=== PATIENT | male | born 1990 | race Two or more races ===

== ENCOUNTER 2019-01-19 17:01 | Inpatient (IN) | payer MEDICARE, OTHER ==
[2019-01-19] MEDS ORDERED: KETOROLAC 30 MG/ML 1 ML VIAL IVP STA (17:36)
[2019-01-19] MEDS ORDERED: SODIUM CHLORIDE 0.9% 1,000 ML IV ONE (17:36)
--- NOTE | 2019-01-19 17:52 | ED ---
General Adult HPI - General Chief complaint: Skin/Abscess/Foreign Body Stated complaint: foot pain Time Seen by Provider: 01/19/19 17:12 Source: patient Mode of arrival: wheelchair Limitations: no limitations - History of Present Illness Initial comments: 28-year-old male patient who is nonverbal presents with mother for evaluation of right foot pain. Parent states that she noticed redness and swelling to the foot yesterday. States that patient has an abnormal gait and walks on the ball of his foot. States that she noticed a wound between the third and fourth toes with significant redness and swelling yesterday. She denies fever or chills. Denies nausea or vomiting. Patient does seem quite uncomfortable whenever the foot is touched. She denies any history of similar symptoms or infection. States he does have history of epilepsy and takes medication for this. - Related Data Home Medications Medication Instructions Recorded Confirmed Mirtazapine [Remeron] 15 mg PO HS 01/19/19 01/19/19 levETIRAcetam [Keppra] 250 mg PO BID 01/19/19 01/19/19 Allergies Allergy/AdvReac Type Severity Reaction Status Date / Time No Known Allergies Allergy Verified 01/19/19 20:05 Review of Systems ROS Statement: Those systems with pertinent positive or pertinent negative responses have been documented in the HPI. ROS Other: All systems not noted in ROS Statement are negative. Past Medical History Past Medical History: Seizure Disorder History of Any Multi-Drug Resistant Organisms: None Reported Past Surgical History: No Surgical Hx Reported Past Psychological History: No Psychological Hx Reported Smoking Status: Current every day smoker Past Alcohol Use History: None Reported Past Drug Use History: None Reported General Exam Limitations: no limitations General appearance: alert, in no apparent distress, other (Is a well-developed, well-nourished adult male patient in no acute distress. Vital signs upon presentation are temperature 98.5F, pulse 121, respirations 18, blood pressure 151/100, pulse ox 99% on room air.) Eye exam: Present: normal appearance, PERRL, EOMI. Absent: scleral icterus, conjunctival injection, periorbital swelling ENT exam: Present: normal exam, normal oropharynx, mucous membranes moist Respiratory exam: Present: normal lung sounds bilaterally. Absent: respiratory distress, wheezes, rales, rhonchi, stridor Cardiovascular Exam: Present: normal rhythm, tachycardia, normal heart sounds. Absent: systolic murmur, diastolic murmur, rubs, gallop, clicks GI/Abdominal exam: Present: soft, normal bowel sounds. Absent: distended, tenderness, guarding, rebound, rigid Extremities exam: Present: full ROM, tenderness (Tenderness over the dorsum of the foot, over these third and fourth toes, over the ball of the foot.), normal capillary refill, other (There is erythema over the dorsal aspect and ball of the right foot with streaking up the medial calf. There is soft tissue swelling over the dorsal aspect of the right foot. There is an open wound to the webbing between the third and fourth toe, skin is moist and macerated. Pedal pulses 2+ and equal bilaterally.). Absent: pedal edema, joint swelling, calf tenderness Neurological exam: Present: alert, oriented X3, CN II-XII intact Psychiatric exam: Present: normal affect, normal mood Skin exam: Present: warm, dry, intact, normal color. Absent: rash Course Vital Signs 01/19/19 01/19/19 17:09 19:26 Temperature 98.5 F Pulse Rate 121 H 108 H Respiratory 18 18 Rate Blood Pressure 151/100 135/89 O2 Sat by Pulse 99 98 Oximetry Medical Decision Making - Medical Decision Making 28 year-old male patient presents to the emergency department today for evaluation of redness, swelling, and a wound to the right foot. Physical examination did reveal erythema and swelling over the dorsal aspect of the right foot, the ball of the foot, and extending up the medial calf. There is a wound to the webbing between the third and fourth digit on the right foot. Patient is tachycardic. Labs reviewed and did reveal elevated white blood cell count at 12.4, elevated lactic at 2.4. X-ray was obtained, no evidence for osteomyelitis or subcutaneous air. Did start IV antibiotics. He'll be admitted for further evaluation by infectious disease. - Lab Data Result diagrams: 01/19/19 17:55 01/19/19 17:55 Lab Results 01/19/19 01/19/19 01/19/19 Range/Units 17:55 17:55 17:55 WBC 12.4 H (3.8-10.6) k/uL RBC 5.03 (4.30-5.90) m/uL Hgb 16.3 (13.0-17.5) gm/dL Hct 48.2 (39.0-53.0) % MCV 95.9 (80.0-100.0) fL MCH 32.5 (25.0-35.0) pg MCHC 33.9 (31.0-37.0) g/dL RDW 12.0 (11.5-15.5) % Plt Count 281 (150-450) k/uL Neutrophils % 78 % Lymphocytes % 12 % Monocytes % 7 % Eosinophils % 2 % Basophils % 0 % Neutrophils # 9.7 H (1.3-7.7) k/uL Lymphocytes # 1.5 (1.0-4.8) k/uL Monocytes # 0.8 (0-1.0) k/uL Eosinophils # 0.2 (0-0.7) k/uL Basophils # 0.0 (0-0.2) k/uL Sodium 139 (137-145) mmol/L Potassium 4.0 (3.5-5.1) mmol/L Chloride 103 (98-107) mmol/L Carbon Dioxide 23 (22-30) mmol/L Anion Gap 13 mmol/L BUN 9 (9-20) mg/dL Creatinine 0.68 (0.66-1.25) mg/dL Est GFR (CKD-EPI)AfAm >90 (>60 ml/min/1.73 sqM) Est GFR (CKD-EPI)NonAf >90 (>60 ml/min/1.73 sqM) Glucose 100 H (74-99) mg/dL Plasma Lactic Acid Adrien 2.4 H* (0.7-2.0) mmol/L Calcium 9.7 (8.4-10.2) mg/dL Total Bilirubin 0.7 (0.2-1.3) mg/dL AST 30 (17-59) U/L ALT 46 (21-72) U/L Alkaline Phosphatase 84 (38-126) U/L Total Protein 8.2 (6.3-8.2) g/dL Albumin 4.9 (3.5-5.0) g/dL - Radiology Data Radiology results: report reviewed, image reviewed Disposition Clinical Impression: Cellulitis of right foot, Wound of right foot, Sepsis Disposition: ADMITTED IP TO THIS [facility] Condition: Serious Decision to Admit Reason: Admit from Decision Date: 01/19/19 Decision Time: :29
--- NOTE | 2019-01-19 18:30 | XR ---
EXAMINATION TYPE: XR foot complete RT DATE OF EXAM: 01/19/2019 CLINICAL HISTORY: Right foot pain and redness and swelling TECHNIQUE: Frontal, lateral, and oblique images of the right foot are obtained. COMPARISON: None FINDINGS: There is no acute fracture/dislocation evident in the right foot. The joint spaces in the right foot appear within normal limits. The overlying soft tissue demonstrates midfoot circumferent ial soft tissue swelling. IMPRESSION: There is no acute fracture or dislocation in the right foot. Diffuse midfoot soft tissue swelling without acute osseous abnormality. Consider cellulitis.
[2019-01-19 18:32] LABS: Basophils % (A) 0 %; Eosinophils # (A) 0.2 k/uL (0-0.7); Eosinophils % (A) 2 %; HCT 48.2 % (39.0-53.0); HGB 16.3 gm/dL (13.0-17.5); Lymphocytes # (A) 1.5 k/uL (1.0-4.8); Lymphocytes % (A) 12 %; MCH 32.5 pg (25.0-35.0); MCHC 33.9 g/dL (31.0-37.0); MCV 95.9 fL (80.0-100.0); Mean Platelet Volume 6.4; Monocytes # (A) 0.8 k/uL (0-1.0); Monocytes % (A) 7 %; Neutrophils # (A) 9.7 k/uL (1.3-7.7); Neutrophils % (A) 78 %; Platelet Count 281 k/uL (150-450); RBC 5.03 m/uL (4.30-5.90); WBC 12.4 k/uL (3.8-10.6)
[2019-01-19 18:40] LABS: ALT 46 U/L (21-72); AST 30 U/L (17-59); African American GFR (CKD) >90 (>60 ml/min/1.73 sqM); Albumin 4.9 g/dL (3.5-5.0); Alkaline Phosphatase 84 U/L (38-126); Anion Gap 13 mmol/L; Blood Urea Nitrogen 9 mg/dL (9-20); Calcium 9.7 mg/dL (8.4-10.2); Carbon Dioxide 23 mmol/L (22-30); Chloride 103 mmol/L (98-107); Glucose 100 mg/dL (74-99); Non-African American GFR(CKD) >90 (>60 ml/min/1.73 sqM); Sodium 139 mmol/L (137-145); Total Bilirubin 0.7 mg/dL (0.2-1.3); Total Protein 8.2 g/dL (6.3-8.2)
[2019-01-19] MEDS ORDERED: ONDANSETRON 4 MG/2 ML VIAL IVP PRN (19:25)
[2019-01-19] MEDS ORDERED: ACETAMINOPHEN TAB 325 MG TAB PO PRN (19:25)
[2019-01-19] MEDS ORDERED: KETOROLAC 30 MG/ML 1 ML VIAL IVP PRN (19:25)
[2019-01-19] MEDS ORDERED: NALOXONE 0.4 MG/ML 1 ML VIAL IV PRN (19:25)
[2019-01-19] MEDS: SODIUM CHLORIDE 0.9% 1,000 ML IV SCH (20:08)
[2019-01-19] MEDS: levETIRAcetam 250 MG TAB PO SCH (22:16)
[2019-01-19] MEDS: MIRTAZAPINE 15 MG TAB PO SCH (22:16)
[2019-01-20] MEDS: SODIUM CHLORIDE 0.9% 1,000 ML IV SCH ×2 (06:03→17:42)
[2019-01-20 08:47] LABS: Basophils % (A) 0 %; Eosinophils # (A) 0.3 k/uL (0-0.7); Eosinophils % (A) 4 %; HCT 44.3 % (39.0-53.0); HGB 14.8 gm/dL (13.0-17.5); Lymphocytes # (A) 1.4 k/uL (1.0-4.8); Lymphocytes % (A) 17 %; MCH 32.5 pg (25.0-35.0); MCHC 33.3 g/dL (31.0-37.0); MCV 97.6 fL (80.0-100.0); Mean Platelet Volume 6.2; Monocytes # (A) 0.5 k/uL (0-1.0); Monocytes % (A) 7 %; Neutrophils # (A) 5.6 k/uL (1.3-7.7); Neutrophils % (A) 69 %; Platelet Count 242 k/uL (150-450); RBC 4.53 m/uL (4.30-5.90); RDW 12.2 % (11.5-15.5)
[2019-01-20] MEDS: levETIRAcetam 250 MG TAB PO SCH ×2 (09:23→20:01)
[2019-01-20] MEDS ORDERED: DIPH,PERTUS(ACELL)TETVAC-LF 0.5 ML VIAL IM ONE (10:15)
--- NOTE | 2019-01-20 12:00 | P.HPIM ---
History of Present Illness H&P Date: 01/20/19 Chief Complaint: Right foot redness This is a 28-year-old male patient of Dr. Norton with past medical history of intellectual delay from , seizure disorder. Patient was apparently in a coma as a child for approximate 20 days and parents were told that he would never walk. Patient does live at home with his mother and father. He is able to ambulate but has to hang onto the galarza etc. He falls frequently. Patient has 1-2 day history of wound to the right plantar surface of his foot at the base of fourth toe. Mother believes it started as a blister which popped. This wound is now open and he has erythema and edema extending up to the foot to the base of that ankle. Patient also has complaints of headache and back pain which are generalized. There is also concern that patient has difficulty with swallowing and choking episodes after eating. Patient was brought into [facility] emergency center for evaluation. White count was 12.4, afebrile, creatinine 0.68, lactic acid initially 2.4 and status post 1 L of IV fluids. With repeat lactic acid 0.8. Albumin is 4.9. Wound culture was obtained and blood culture in progress. Foot x-ray shows no acute fracture or dislocation. Diffuse mid foot soft tissue swelling without acute osseous abnormality. Consider cellulitis. The patient was started on Kefzol admitted to the [facility] floor and consult requested with Dr. Baer. All information has been obtained from the patient's mother using a publicity writer as patient and family speak Fijian only. Review of Systems Constitutional: Denies chills, Denies fatigue, Denies fever, Denies lethargy, Denies malaise, Denies poor appetite, Denies weakness Eyes: denies blurred vision, denies pain Ears, nose, mouth and throat: Reports dysphagia Cardiovascular: Denies chest pain, Denies shortness of breath Respiratory: Denies cough, Denies cough with sputum, Denies dyspnea, Denies ex cessive sputum, Denies hemoptysis, Denies home oxygen, Denies respiratory infections Gastrointestinal: Denies abdominal pain, Denies diarrhea, Denies loss of appetite, Denies nausea, Denies vomiting Genitourinary: Denies dysuria, Denies urinary frequency, Denies urinary retention Musculoskeletal: Reports frequent falls, Reports gait dysfunction, Reports muscle weakness, Denies myalgias Integumentary: Reports color changes, Reports darkening of skin, Reports wounds, Denies pruritus, Denies rash Neurological: Denies change in mentation (MENTATION is at baseline.), Denies change in speech, Denies numbness, Denies seizures, Denies weakness Psychiatric: Denies anxiety, Denies depression Endocrine: Denies fatigue, Denies weight change Past Medical History Past Medical History: Seizure Disorder Additional Past Medical History / Comment(s): Intellectual delay History of Any Multi-Drug Resistant Organisms: None Reported Past Surgical History: No Surgical Hx Reported Past Psychological History: No Psychological Hx Reported Smoking Status: Never smoker Past Alcohol Use History: None Reported Additional Past Alcohol Use History / Comment(s): Patient is a lifelong nonsmoker, no marijuana use, no illicit drug use, no alcohol use. Patient lives at home with his mother and father as his primary caregivers. Past Drug Use History: None Reported - Past Family History Mother Additional Family Medical History / Comment(s): Mother is alive at age 61 with history of hypertension and prediabetes. Father Additional Family Medical History / Comment(s): Father is alive with no major medical problems. Patient has 5 brothers and 1 sister with no major medical problems. No children. Medications and Allergies Home Medications Medication Instructions Recorded Confirmed Type Mirtazapine [Remeron] 15 mg PO HS 01/19/19 01/19/19 History levETIRAcetam [Keppra] 250 mg PO BID 01/19/19 01/19/19 History Allergies Allergy/AdvReac Type Severity Reaction Status Date / Time No Known Allergies Allergy Verified 01/19/19 20:05 Physical Exam Vitals: Vital Signs Temp Pulse Pulse Resp BP BP Pulse Ox 01/20/19 05:00 97.3 F L 90 18 110/72 97 01/19/19 21:00 98 F 120 H 18 128/77 98 01/19/19 19:26 108 H 18 135/89 98 01/19/19 17:09 98.5 F 121 H 18 151/100 99 Intake and Output 01/19/19 01/20/19 01/20/19 22:59 06:59 14:59 Intake Total 300 Output Total 400 Balance 300 -400 Intake: Intake, IV Titration 300 Amount Sodium Chloride 0.9% 1, 300 000 ml @ 100 mls/hr IV . Q10H [facility] Rx#:[id number] Output: Urine 400 Other: Voiding Method Toilet Urinal Weight 56.699 kg Gen: This is a 28-year-old male. He is resting in bed and appears to be comfortable and in no acute distress. Patient initially smiles to staff. He interacts with his mother. HEENT: Head is atraumatic, normocephalic. Pupils equal, round. Sclerae is anicteric. Oral mucous membranes are moist. Dentition is in good order. NECK: Supple. No JVD. No lymphadenopathy. No thyromegaly. LUNGS: Clear to auscultation. No wheezes or rhonchi. No intercostal retractions. HEART: Regular rate and rhythm. No murmur. ABDOMEN: Soft. Bowel sounds are present. No masses. No tenderness. EXTREMITIES: There is a wound to the plantar surface of the right foot at the base of the fourth toe with minimal drainage, erythema to the foot with edema mo re so to the lateral area. Dorsalis pedis +2 bilaterally. NEUROLOGICAL: Patient is awake, alert. Results CBC & Chem 7: 01/20/19 08:01 01/19/19 17:55 Labs: Abnormal Lab Results - Last 24 Hours (Table) 01/19/19 01/19/19 01/19/19 Range/Units 17:55 17:55 17:55 WBC 12.4 H (3.8-10.6) k/uL Neutrophils # 9.7 H (1.3-7.7) k/uL Glucose 100 H (74-99) mg/dL Plasma Lactic Acid Adrien 2.4 H* (0.7-2.0) mmol/L Microbiology - Last 24 Hours (Table) 01/19/19 17:55 Gram Stain - Preliminary Foot - Right Wound Culture - Preliminary Thrombosis Risk Factor Assmnt - DVT/VTE Prophylaxis DVT/VTE Prophylaxis: Pharmacologic Prophylaxis ordered - Choose All That Apply Any of the Below Risk Factors Present?: Yes Each Factor Represents 1 point: Swollen legs (current) Other Risk Factors: No Other congenital or acquired thrombophilia - If yes, enter type in comment: No Thrombosis Risk Factor Assessment Total Risk Factor Score: 1 Thrombosis Risk Factor Assessment Level: Low Risk Assessment and Plan Plan: 1. Traumatic ulcer to the right foot with surrounding cellulitis. Consult with Dr. Baer. Patient is currently on Kefzol. Tetanus status will be updated. Wound culture and blood culture in progress. Foot x-ray shows no acute fracture. Local wound care to be addressed. 2. Intellectually delayed, stable. Patient is currently at his baseline mentation. 3. Dysphagia. Consult with speech therapy. Patient may require modified barium swallow. 4. Seizure disorder. Continue Keppra 250 mg twice daily. 5. Recurrent depression. Continue Remeron 15 mg at bedtime. 6. DVT prophylaxis. Lovenox subcu daily. 7. GI prophylaxis. Pepcid. Patient will be admitted to the hospital for a minimum of 2 night stay. Discharge plan: Return home. Patient may benefit from home care. Impression and plan of care have been directed as dictated by the signing physician. Jannet Conley nurse practitioner acting as scribe for signing physician.
--- NOTE | 2019-01-20 12:03 | P.CONS ---
History of Present Illness - Reason for Consult Consult date: 01/20/19 Cellulitis right foot wound - History of Present Illness This is a 28-year-old male patient of Dr. Norton with past medical history of intellectual delay from , seizure disorder. Patient was apparently in a coma as a child for approximate 20 days and parents were told that he would never walk. Patient does live at home with his mother and father. He is able to ambulate but has to hang onto the galarza etc. He falls frequently. Patient has 1-2 day history of wound to the right plantar surface of his foot at the base of fourth toe. Mother believes it started as a blister which popped. This wound is now open and he has erythema and edema extending up to the foot to the base of that ankle. Patient also has complaints of headache and back pain which are generalized. There is also concern that patient has difficulty with swallowing and choking episodes after eating. Patient was brought into [facility] emergency center for evaluation. White count was 12.4, afebrile, creatinine 0.68, lactic acid initially 2.4 and status post 1 L of IV fluids. With repeat lactic acid 0.8. Albumin is 4.9. Wound culture was obtained and blood culture in progress. Foot x-ray shows no acute fracture or dislocation. Diffuse mid foot soft tissue swelling without acute osseous abnormality. Consider cellulitis. The patient was started on Kefzol [facility]. All information has been obtained from the patient's mother using a cardroom worker as patient and family speak Amharic only. Review of Systems Constitutional: Denies chills, Denies fatigue, Denies fever, Denies lethargy, Denies malaise, Denies poor appetite, Denies weakness Eyes: denies blurred vision, denies pain Ears, nose, mouth and throat: Reports dysphagia Cardiovascular: Denies chest pain, Denies shortness of breath Respiratory: Denies cough, Denies cough with sputum, Denies dyspnea, Denies excessive sputum, Denies hemoptysis, Denies home oxygen, Denies respiratory infections Gastrointestinal: Denies abdominal pain, Denies diarrhea, Denies loss of appetite, Denies nausea, Denies vomiting Genitourinary: Denies dysuria, Denies urinary frequency, Denies urinary retention Musculoskeletal: Reports frequent falls, Reports gait dysfunction, Reports muscle weakness, Denies myalgias Integumentary: Reports color changes, Reports darkening of skin, Reports wounds, Denies pruritus, Denies rash Neurological: Denies change in mentation (MENTATION is at baseline.), Denies change in speech, Denies numbness, Denies seizures, Denies weakness Psychiatric: Denies anxiety, Denies depression Endocrine: Denies fatigue, Denies weight change Past Medical History Past Medical History: Seizure Disorder Additional Past Medical History / Comment(s): Intellectual delay History of Any Multi-Drug Resistant Organisms: None Reported Past Surgical History: No Surgical Hx Reported Past Psychological History: No Psychological Hx Reported Smoking Status: Never smoker Past Alcohol Use History: None Reported Additional Past Alcohol Use History / Comment(s): Patient is a lifelong nonsmoker, no marijuana use, no illicit drug use, no alcohol use. Patient lives at home with his mother and father as his primary caregivers. Past Drug Use History: None Reported - Past Family History Mother Additional Family Medical History / Comment(s): Mother is alive at age 61 with history of hypertension and prediabetes. Father Additional Family Medical History / Comment(s): Father is alive with no major medical problems. Patient has 5 brothers and 1 sister with no major medical problems. No children. Medications and Allergies Home Medications Medication Instructions Recorded Confirmed Type Mirtazapine [Remeron] 15 mg PO HS 01/19/19 01/19/19 History levETIRAcetam [Keppra] 250 mg PO BID 01/19/19 01/19/19 History Allergies Allergy/AdvReac Type Severity Reaction Status Date / Time No Known Allergies Allergy Verified 01/19/19 20:05 Physical Exam Vitals: Vital Signs Temp Pulse Pulse Resp BP BP Pulse Ox 01/20/19 05:00 97.3 F L 90 18 110/72 97 01/19/19 21:00 98 F 120 H 18 128/77 98 01/19/19 19:26 108 H 18 135/89 98 01/19/19 17:09 98.5 F 121 H 18 151/100 99 Intake and Output 01/19/19 01/20/19 01/20/19 22:59 06:59 14:59 Intake Total 300 Output Total 400 Balance 300 -400 Intake: Intake, IV Titration 300 Amount Sodium Chloride 0.9% 1, 300 000 ml @ 100 mls/hr IV . Q10H [facility] Rx#:[id number] Output: Urine 400 Other: Voiding Method Toilet Toilet Urinal Urinal Weight 56.699 kg Gen: This is a 28-year-old male. He is resting in bed and appears to be comfortable and in no acute distress. Patient initially smiles to staff. He interacts with his mother. HEENT: Head is atraumatic, normocephalic. Pupils equal, round. Sclerae is anicteric. Oral mucous membranes are moist. Dentition is in good order. NECK: Supple. No JVD. No lymphadenopathy. No thyromegaly. LUNGS: Clear to auscultation. No wheezes or rhonchi. No intercostal retractions. HEART: Regular rate and rhythm. No murmur. ABDOMEN: Soft. Bowel sounds are present. No masses. No tenderness. EXTREMITIES: There is a wound to the plantar surface of the right foot at the base of the fourth toe with minimal drainage, erythema to the foot with edema more so to the lateral area. Dorsalis pedis +2 bilaterally. NEUROLOGICAL: Patient is awake, alert. Results Results: Laboratory Results WBC 8.0 k/uL (3.8-10.6) 01/20/19 08:01 RBC 4.53 m/uL (4.30-5.90) 01/20/19 08:01 Hgb 14.8 gm/dL (13.0-17.5) 01/20/19 08:01 Hct 44.3 % (39.0-53.0) 01/20/19 08:01 MCV 97.6 fL (80.0-100.0) 01/20/19 08:01 MCH 32.5 pg (25.0-35.0) 01/20/19 08:01 MCHC 33.3 g/dL (31.0-37.0) 01/20/19 08:01 RDW 12.2 % (11.5-15.5) 01/20/19 08:01 Plt Count 242 k/uL (150-450) 01/20/19 08:01 Neutrophils % 69 % 01/20/19 08:01 Lymphocytes % 17 % 01/20/19 08:01 Monocytes % 7 % 01/20/19 08:01 Eosinophils % 4 % 01/20/19 08:01 Basophils % 0 % 01/20/19 08:01 Neutrophils # 5.6 k/uL (1.3-7.7) 01/20/19 08:01 Lymphocytes # 1.4 k/uL (1.0-4.8) 01/20/19 08:01 Monocytes # 0.5 k/uL (0-1.0) 01/20/19 08:01 Eosinophils # 0.3 k/uL (0-0.7) 01/20/19 08:01 Basophils # 0.0 k/uL (0-0.2) 01/20/19 08:01 Sodium 139 mmol/L (137-145) 01/19/19 17:55 Potassium 4.0 mmol/L (3.5-5.1) 01/19/19 17:55 Chloride 103 mmol/L (98-107) 01/19/19 17:55 Carbon Dioxide 23 mmol/L (22-30) 01/19/19 17:55 Anion Gap 13 mmol/L 01/19/19 17:55 BUN 9 mg/dL (9-20) 01/19/19 17:55 Creatinine 0.68 mg/dL (0.66-1.25) 01/19/19 17:55 Est GFR (CKD-EPI)AfAm >90 (>60 ml/min/1.73 sqM) 01/19/19 17:55 Est GFR (CKD-EPI)NonAf >90 (>60 ml/min/1.73 sqM) 01/19/19 17:55 Glucose 100 mg/dL (74-99) H 01/19/19 17:55 Lactic Ac Sepsis Rflx Y 01/19/19 18:46 Plasma Lactic Acid Adrien 0.8 mmol/L (0.7-2.0) 01/19/19 21:52 Calcium 9.7 mg/dL (8.4-10.2) 01/19/19 17:55 Total Bilirubin 0.7 mg/dL (0.2-1.3) 01/19/19 17:55 AST 30 U/L (17-59) 01/19/19 17:55 ALT 46 U/L (21-72) 01/19/19 17:55 Alkaline Phosphatase 84 U/L (38-126) 01/19/19 17:55 Total Protein 8.2 g/dL (6.3-8.2) 01/19/19 17:55 Albumin 4.9 g/dL (3.5-5.0) 01/19/19 17:55 CBC & Chem 7: 01/20/19 08:01 01/19/19 17:55 Labs: Abnormal Lab Results - Last 24 Hours (Table) 01/19/19 01/19/19 01/19/19 Range/Units 17:55 17:55 17:55 WBC 12.4 H (3.8-10.6) k/uL Neutrophils # 9.7 H (1.3-7.7) k/uL Glucose 100 H (74-99) mg/dL Plasma Lactic Acid Adrien 2.4 H* (0.7-2.0) mmol/L Microbiology - Last 24 Hours (Table) 01/19/19 17:55 Gram Stain - Preliminary Foot - Right Wound Culture - Preliminary Assessment and Plan Plan: This is a 28-year-old male presented to the hospital with traumatic ulcer to the right foot with surrounding cellulitis in a patient with underlying history of intellectual delay and seizure disorder. Patient also presents with concerns for dysphagia for which speech therapy has been requested. Patient is currently on Kefzol. Tetanus status will be updated. Wound culture and blood culture in progress. Foot x-ray shows no acute fracture. Local wound care to be addressed. Continue supportive care. Further recommendations as patient progresses. The above dictated assessment and findings were discussed with Dr. Baer. The impression and plan of care have been directed as dictated. Jannet Conley nurse practitioner acting as scribe for Dr. Baer.
[2019-01-20] MEDS: MIRTAZAPINE 15 MG TAB PO SCH (20:01)
--- NOTE | 2019-01-20 20:40 | P.CON ---
Consult Note - . Consult date: 01/20/19 Assessment/Plan:: This is a 28-year-old male patient of Dr. Norton with past medical history of intellectual delay from , seizure disorder. Patient was apparently in a coma as a child for approximate 20 days and parents were told that he would never walk. Patient does live at home with his mother and father. He is able to ambulate but has to hang onto the galarza etc. He falls frequently. Patient has 1-2 day history of wound to the right plantar surface of his foot at the base of fourth toe. Mother believes it started as a blister which popped. This wound is now open and he has erythema and edema extending up to the foot to the base of that ankle. Patient also has complaints of headache and back pain which are generalized. There is also concern that patient has difficulty with swallowing and choking episodes after eating. Patient was brought into [facility] emergency center for evaluation. White count was 12.4, afebrile, creatinine 0.68, lactic acid initially 2.4 and status post 1 L of IV fluids. With repeat lactic acid 0.8. Albumin is 4.9. Wound culture was obtained and blood culture in progress. Foot x-ray shows no acute fracture or dislocation. Diffuse mid foot soft tissue swe lling without acute osseous abnormality. Consider cellulitis. The patient was started on Kefzol admitted to the [facility] floor. All information has been obtained from the patient's mother using a information developer as patient and family speak Lithuanian only. Please see consult note was dictated by nurse practitioner Mrs. Jannet Conley. The patient's niece is present and is able to interpret from the mother in the aunt about the patient's status. No distinct trauma has occurred but he does walk in the foot with his an antalgic gait. He presents to hospital with the open wound with drainage and significant redness that has started on the foot that ascended to at least the ankle which was concerning. He was brought to the hospital, start antibiotic therapy and some local wound care and elevation. He is now having improvement. The patient himself does not relate much with the family relates that he does not seem to be in pain. He's had no chills. He has had no other significant new symptoms that they are aware of. Plan excision reviewed, bone scan is requested to evaluate the possibility of underlying osteomyelitis to this area. Local wound care with the medihoney product is requested to be changed daily for now. Elevation limb while he is at rest. He is responding well to intravenous Ancef and that will continue for now and cultures were further direct the course of antibiotic therapy when he becomes ready for discharge to home. He had leukocytosis at admission at 29 starting to improve with the current therapy. I agree with evaluation, assessment and plan is to see by nurse practitioner Mrs. Jannet Conley.
[2019-01-20 21:23] VITALS: RESP 16
[2019-01-21] MEDS: SODIUM CHLORIDE 0.9% 1,000 ML IV SCH (05:40)
[2019-01-21] MEDS: levETIRAcetam 250 MG TAB PO SCH (08:38)
[2019-01-21 12:10] VITALS: BP 136/84; PULSE 102; TEMP 98
--- NOTE | 2019-01-21 14:10 | NM ---
EXAMINATION TYPE: NM bone 3 phase DATE OF EXAM: 01/21/2019 COMPARISON: X-rays of the right foot dated 01/19/2019 HISTORY: Right foot osteomyelitis. Triple phase bone scintigraphy was performed following the injection of 24.3 mCi Tc 99m MDP. Immedia te images and 6 hours post injection images acquired. FINDINGS: There is abnormal flow and blood pool to the right lower extremity there is asymmetric to the left. D elayed images do demonstrate diffuse asymmetric uptake of the midfoot and hindfoot on the right altho ugh uptake is also seen on the left, likely arthropathy. IMPRESSION: Although the three-phase bone scan is positive with uptake on all 3 phases in the right midfoot there is also extension into the right hindfoot globally. Diffuse osteomyelitis is possible however this i s a large area for osteomyelitis and confirmatory MRI could be considered.
--- NOTE | 2019-01-21 15:13 | P.PN ---
Subjective Progress Note Date: 01/21/19 This is a 28-year-old male patient of Dr. Norton with past medical history of intellectual delay from , seizure disorder. Patient was apparently in a coma as a child for approximate 20 days and parents were told that he would never walk. Patient does live at home with his mother and father. He is able to ambulate but has to hang onto the galarza etc. He falls frequently. Patient has 1-2 day history of wound to the right plantar surface of his foot at the base of fourth toe. Mother believes it started as a blister which popped. This wound is now open and he has erythema and edema extending up to the foot to the base of that ankle. Patient also has complaints of headache and back pain which are generalized. There is also concern that patient has difficulty with swallowing and choking episodes after eating. Patient was brought into [facility] emergency center for evaluation. White count was 12.4, afebrile, creatinine 0.68, lactic acid initially 2.4 and status post 1 L of IV fluids. With repeat lactic acid 0.8. Albumin is 4.9. Wound culture was obtained and blood culture in progress. Foot x-ray shows no acute fracture or dislocation. Diffuse mid foot soft tissue swelling without acute osseous abnormality. Consider cellulitis. The patient was started on Kefzol admitted to the [facility] floor and consult requested with Dr. Baer. All information has been obtained from the patient's mother using a tax adjuster as patient and family speak Albanian only. 01/21: Patient has been seen by Dr. Baer and he has ordered a bone scan to rule out osteomyelitis. Local wound care as the form of medihoney daily and elevation. Patient is continued on Ancef. The patient has less erythema to the right foot. Repeat lab work reveals a normal CBC, white count came down to 8.0. Wound culture is presumptive staph aureus. Blood culture no growth at 24 hours. Bone scan is showing positive with uptake in the right mid foot and extension into the right hind foot globally. Diffuse osteomyelitis is possible however it is a large area for osteomyelitis and confirmatory MRI would be considered. Review of Systems Constitutional: Denies chills, Denies fatigue, Denies fever, Denies lethargy, Denies malaise, Denies poor appetite, Denies weakness Ears, nose, mouth and throat: Reports dysphagia Cardiovascular: Denies chest pain, Denies shortness of breath Respiratory: Denies cough, Denies cough with sputum, Denies dyspnea, Denies ex cessive sputum, Denies hemoptysis, Denies home oxygen, Denies respiratory infections Gastrointestinal: Denies abdominal pain, Denies diarrhea, Denies loss of appetite, Denies nausea, Denies vomiting Genitourinary: Denies dysuria, Denies urinary frequency, Denies urinary retention Musculoskeletal: Reports frequent falls, Reports gait dysfunction, Reports muscle weakness, Denies myalgias Integumentary: Reports color changes, Reports darkening of skin, Reports wounds, Denies pruritus, Denies rash Neurological: Denies change in mentation (MENTATION is at baseline.), Denies change in speech, Denies numbness, Denies seizures, Denies weakness Psychiatric: Denies anxiety, Denies depression Endocrine: Denies fatigue, Denies weight change Objective - Vital Signs Vital signs: Vital Signs Temp 97.8 F 01/21/19 05:00 Pulse 87 01/21/19 05:00 Resp 16 01/21/19 05:00 BP 123/81 01/21/19 05:00 Pulse Ox 97 01/21/19 05:00 Intake & Output 01/20/19 01/21/19 01/21/19 18:59 06:59 18:59 Intake Total 1000 450 Output Total 620 Balance 380 450 Intake: Intake, IV Titration 1000 450 Amount Sodium Chloride 0.9% 1, 800 350 000 ml @ 100 mls/hr IV . Q10H RAJ Rx#:[id number] ceFAZolin 1,000 mg In 200 100 Sodium Chloride 0.9% 50 ml @ 100 mls/hr IVPB Q6HR RAJ Rx#:[id number] Output: Urine 620 Other: Voiding Method Urinal Urinal # Voids 700 - Exam Gen: This is a 28-year-old male. He is resting in bed and appears to be comfortable and in no acute distress. Patient initially smiles to staff. He interacts with his mother. HEENT: Head is atraumatic, normocephalic. Pupils equal, round. Sclerae is anicteric. Oral mucous membranes are moist. Dentition is in good order. NECK: Supple. No JVD. No lymphadenopathy. No thyromegaly. LUNGS: Clear to auscultation. No wheezes or rhonchi. No intercostal retractions. HEART: Regular rate and rhythm. No murmur. ABDOMEN: Soft. Bowel sounds are present. No masses. No tenderness. EXTREMITIES: There is a wound to the plantar surface of the right foot at the base of the fourth toe with minimal drainage, erythema to the foot with edema is decreased from yesterday. Dorsalis pedis +2 bilaterally. NEUROLOGICAL: Patient is awake, alert. - Labs CBC & Chem 7: 01/20/19 08:01 01/19/19 17:55 Labs: Microbiology - Last 24 Hours (Table) 01/19/19 17:55 Blood Culture - Preliminary Blood No Growth after 24 hours 01/19/19 17:55 Gram Stain - Preliminary Foot - Right Wound Culture - Preliminary Presumptive Staph aureus Assessment and Plan Plan: 1. Traumatic ulcer to the right foot with surrounding cellulitis. Consult with Dr. Baer. Patient is currently on Kefzol. Tetanus status will be updated. Wound culture and blood culture in progress. Foot x-ray shows no acute fracture. Local wound care with [facility]. Bone scan as above. 2. Intellectually delayed, stable. Patient is currently at his baseline mentation. 3. Dysphagia. Consult with speech therapy. Patient may require modified barium swallow. 4. Seizure disorder. Continue Keppra 250 mg twice daily. 5. Recurrent depression. Continue Remeron 15 mg at bedtime. 6. DVT prophylaxis. Lovenox subcu daily. 7. GI prophylaxis. Pepcid. Discharge plan: Return home. Patient may benefit from home care. Impression and plan of care have been directed as dictated by the signing physician. Jannet Conley nurse practitioner acting as scribe for signing physician.
--- NOTE | 2019-01-21 16:05 | P.DS ---
Providers Date of admission: 01/21/19 14:35 Expected date of discharge: 01/21/19 Attending physician: Poli Pereyra Consults: 01/19/19 19:26 Consult Physician Routine Consulting Provider: Poli Baer Consult Reason/Comments: Cellulitis; Right foot wound Do you want consulting provider notified?: Yes Primary care physician: [facility] Course: This is a 28-year-old male patient of Dr. Norton with past medical history of intellectual delay from , seizure disorder. Patient was apparently in a coma as a child for approximate 20 days and parents were told that he would never walk. Patient does live at home with his mother and father. He is able to ambulate but has to hang onto the galarza etc. He falls frequently. Patient has 1-2 day history of wound to the right plantar surface of his foot at the base of fourth toe. Mother believes it started as a blister which popped. This wound is now open and he has erythema and edema extending up to the foot to the base of that ankle. Patient also has complaints of headache and back pain which are generalized. There is also concern that patient has difficulty with swallowing and choking episodes after eating. Patient was brought into [facility] emergency center for evaluation. White count was 12.4, afebrile, creatinine 0.68, lactic acid initially 2.4 and status post 1 L of IV fluids. With repeat lactic acid 0.8. Albumin is 4.9. Wound culture was obtained and blood culture in progress. Foot x-ray shows no acute fracture or dislocation. Diffuse mid foot soft tissue swelling without acute osseous abnormality. Consider cellulitis. The patient was started on Kefzol admitted to the [facility] floor and consult requested with Dr. Baer. All information has been obtained from the patient's mother using a business operations manager as patient and family speak Occitan only. 01/21: Patient has been seen by Dr. Baer and he has ordered a bone scan to rule out osteomyelitis. Local wound care as the form of medihoney daily and elevation. Patient is continued on Ancef. The patient has less erythema to the right foot. Repeat lab work reveals a normal CBC, white count came down to 8.0. Wound culture is presumptive staph aureus. Blood culture no growth at 24 hours. Bone scan is showing positive with uptake in the right mid foot and extension into the right hind foot globally. Diffuse osteomyelitis is possible however it is a large area for osteomyelitis and confirmatory MRI would be considered. This was not the area that was concerning for possible osteomyelitis and thus has been ruled out in the fourth toe. Discussed case with Dr. Baer and he is cleared the patient for discharge. Antibiotics have been sent to his pharmacy. We will ask for case management to set up home care to assist with wound care for short period of time. operations support manager is gone and we will leave message to follow-up tomorrow. Patient will be discharged home today in stable condition. Discharge diagnoses: 1. Traumatic ulcer to the right foot with surrounding cellulitis. 2. Intellectually delayed, stable. 3. Dysphagia. 4. Seizure disorder. 5. Recurrent depression. Discharge plan: Return home. Patient will benefit from home care. Impression and plan of care have been directed as dictated by the signing physician. Jannet Conley nurse practitioner acting as scribe for signing physician. Patient Condition at Discharge: Serious Plan - Discharge Summary Discharge Rx Participant: No New Discharge Prescriptions: New Cephalexin [Keflex] 500 mg PO Q8HR #28 cap Continue levETIRAcetam [Keppra] 250 mg PO BID Mirtazapine [Remeron] 15 mg PO HS Discharge Medication List Mirtazapine [Remeron] 15 mg PO HS 01/19/19 [History] levETIRAcetam [Keppra] 250 mg PO BID 01/19/19 [History] Cephalexin [Keflex] 500 mg PO Q8HR #28 cap 01/21/19 [Rx] Follow up Appointment(s)/Referral(s): Lionel Norton DO [Primary Care Provider] - 1 Week Discharge Disposition: HOME WITH HOME HEALTH SERVICES
== END 2019-01-21 17:55 | disposition home health service (06) | DRG 603 ==
LOC: EC 17:01 → 3NMEDONC 19:12 → MERGE 01-21 14:35 → OBSVTOIN 01-21 14:35
PROVIDERS: ADMIT Internal Medicine Geriatric Medicine; ATTEND Internal Medicine Geriatric Medicine
DX: L03.115 Cellulitis of right lower limb (principal); F33.9 Major depressive disorder, recurrent, unspecified; L97.519 Non-pressure chronic ulcer of other part of right foot with unspecified severity; R13.10 Dysphagia, unspecified; F17.200 Nicotine dependence, unspecified, uncomplicated; G40.909 Epilepsy, unspecified, not intractable, without status epilepticus; R29.6 Repeated falls; M54.9 Dorsalgia, unspecified; R51 Headache; R26.9 Unspecified abnormalities of gait and mobility; F81.9 Developmental disorder of scholastic skills, unspecified; Z79.899 Other long term (current) drug therapy; Z82.49 Family history of ischemic heart disease and other diseases of the circulatory system
CPT/HCPCS: 36415; 78315; 80053; 83605; 85025; 87040; 87070; 87077; 87186; 87205; 90715; 96361; 96374; 99284

== ENCOUNTER 2023-01-27 02:18 | Inpatient (IN) | payer MEDICARE, OTHER ==
[2023-01-27 03:02] LABS: Glucose,Whole Blood 132 mg/dL (70-110)
[2023-01-27 03:53] LABS: Basophils % (A) 0 %; Eosinophils # (A) 0.1 k/uL (0-0.7); Eosinophils % (A) 0 %; HCT 46.2 % (39.0-53.0); Lymphocytes # (A) 1.2 k/uL (1.0-4.8); Lymphocytes % (A) 8 %; MCH 32.7 pg (25.0-35.0); MCHC 34.7 g/dL (31.0-37.0); MCV 94.2 fL (80.0-100.0); Mean Platelet Volume 6.8; Monocytes # (A) 0.8 k/uL (0-1.0); Monocytes % (A) 6 %; Neutrophils % (A) 85 %; Platelet Count 372 k/uL (150-450); RBC 4.91 m/uL (4.30-5.90); WBC 14.2 k/uL (3.8-10.6)
[2023-01-27 04:11] LABS: ALT 48 U/L (4-49); AST 36 U/L (17-59); African American GFR (CKD) >90 (>60 ml/min/1.73 sqM); Albumin 5.1 g/dL (3.5-5.0); Alcohol <10 mg/dL; Alkaline Phosphatase 96 U/L (38-126); Anion Gap 16 mmol/L; Blood Urea Nitrogen 19 mg/dL (9-20); Calcium 10.3 mg/dL (8.4-10.2); Carbon Dioxide 22 mmol/L (22-30); Chloride 102 mmol/L (98-107); Glucose 80 mg/dL (74-99); Non-African American GFR(CKD) >90 (>60 ml/min/1.73 sqM); Potassium 3.8 mmol/L (3.5-5.1); Sodium 140 mmol/L (137-145); Total Bilirubin 0.5 mg/dL (0.2-1.3); Total Protein 8.5 g/dL (6.3-8.2)
[2023-01-27 04:31] LABS: Partial Thromboplastin Time 23.6 sec (22.0-30.0); Prothrombin Time 10.6 sec (10.0-12.5)
[2023-01-27 07:05] LABS: Appearance,Urine Clear (Clear); Bilirubin,Urine Negative (Negative); Blood,Urine Negative (Negative); Color,Urine Yellow; Glucose,Urine (UA) Negative (Negative); Ketones,Urine 3+ (Negative); Leukocyte Esterase,Urine Negative (Negative); Nitrite,Urine Negative (Negative); Protein,Urine Trace (Negative); Specific Gravity,Urine 1.025 (1.001-1.035); Urobilinogen,Urine <2.0 mg/dL (<2.0)
[2023-01-27 07:20] LABS: Amphetamine Screen,Urine Not Detected (NotDetected); Barbiturate Screen,Urine Not Detected (NotDetected); Benzodiazepines Screen,Urine Not Detected (NotDetected); Cocaine Screen,Urine Not Detected (NotDetected); Methadone Screen, Urine Not Detected (NotDetected); Opiate Screen,Urine Not Detected (NotDetected); Oxycodone Screen, Urine Not Detected (NotDetected); Phencyclidine Screen,Urine Not Detected (NotDetected); Tricyclic Antidepressant,Urine Not Detected (NotDetected); Urn Cannabinoid Scrn Not Detected (NotDetected)
--- NOTE | 2023-01-27 07:48 | XR ---
EXAM: XR Chest, 1 View CLINICAL HISTORY: ITS.REASON XR Reason: altered mental status TECHNIQUE: Frontal view of the chest. COMPARISON: 08/02/2013 FINDINGS: Lungs: Unremarkable. No consolidation. Pleural space: Unremarkable. No pneumothorax. Heart: Unremarkable. No cardiomegaly. Mediastinum: Unremarkable. Normal mediastinal contour. Bones/joints: Unremarkable. No acute fracture. IMPRESSION: Normal chest x-ray.
--- NOTE | 2023-01-27 08:12 | ED ---
Altered Mental Status HPI <Andrew Ching - Last Filed: 01/27/23 12:23> - General Source: patient Mode of arrival: wheelchair Limitations: no limitations - History of Present Illness MD Complaint: altered mental status Onset/Timin -: days(s) Severity: moderate Consistency of Symptoms: getting worse Associated Symptoms: denies other symptoms <Rodrigo Beltran - Last Filed: 02/05/23 06:54> - General Chief Complaint: Altered Mental Status Stated Complaint: mental health Time Seen by Provider: 01/27/23 02:41 - History of Present Illness Initial Comments: 's patient is a 32-year-old man with history of some developmental disability, attributed to cerebral palsy. The patient arrives with family who states that he has not been his usual self going back proximal 3 days. They note that he is at eating or drinking well. He has been holding his groin and genitals. The patient also now seems to be responding to internal stimuli. They state he will look as if he is seeing something that is not there. They have not noted fever or chills. They have not noted cough or respiratory problem. They state that he did have some episodes of nausea and vomiting. There was no hematemesis. He has not passed any bloody or tarry stools. (Rodrigo Beltran) - Related Data Previous Rx's Medication Instructions Recorded Paliperidone [Invega] 3 mg PO DAILY #30 tab 01/29/23 levETIRAcetam [Keppra] 500 mg PO BID #60 tab 01/29/23 traZODone HCL [Desyrel] 50 mg PO HS #30 tab 01/29/23 Allergies Allergy/AdvReac Type Severity Reaction Status Date / Time No Known Allergies Allergy Verified 01/27/23 13:57 Review of Systems ROS Other: All systems not noted in ROS Statement are negative. <Andrew Ching - Last Filed: 01/27/23 12:23> ROS Other: All systems not noted in ROS Statement are negative. Constitutional: Denies: fever, weakness Respiratory: Denies: cough, dyspnea Cardiovascular: Denies: chest pain, edema, syncope Gastrointestinal: Reports: vomiting, constipation. Denies: diarrhea, melena, hematochezia Genitourinary: Denies: dysuria, hematuria Musculoskeletal: Denies: back pain Skin: Denies: rash Neurological: Denies: headache, weakness, numbness <Rodrigo Beltran - Last Filed: 02/05/23 06:54> ROS Statement: Those systems with pertinent positive or pertinent negative responses have been documented in the HPI. Past Medical History Past Medical History: Seizure Disorder Additional Past Medical History / Comment(s): Intellectual delay History of Any Multi-Drug Resistant Organisms: None Reported Past Surgical History: No Surgical Hx Reported Past Psychological History: No Psychological Hx Reported Smoking Status: Never smoker Past Alcohol Use History: None Reported Past Drug Use History: None Reported - Past Family History Mother Additional Family Medical History / Comment(s): Mother is alive at age 61 with h istory of hypertension and prediabetes. Father Additional Family Medical History / Comment(s): Father is alive with no major medical problems. Patient has 5 brothers and 1 sister with no major medical problems. No children. <Rodrigo Beltran - Last Filed: 02/05/23 06:54> General Exam Limitations: no limitations General appearance: alert, in no apparent distress Head exam: Present: atraumatic, normocephalic Eye exam: Present: normal appearance. Absent: scleral icterus, conjunctival injection ENT exam: Present: normal oropharynx Neck exam: Present: normal inspection Respiratory exam: Present: normal lung sounds bilaterally. Absent: respiratory distress, wheezes, rales, rhonchi, stridor Cardiovascular Exam: Present: normal rhythm, tachycardia, normal heart sounds. Absent: systolic murmur, diastolic murmur, rubs, gallop GI/Abdominal exam: Present: soft. Absent: distended, tenderness, guarding, rebound, rigid, mass, pulsatile mass Extremities exam: Present: normal inspection, normal capillary refill. Absent: pedal edema, calf tenderness Back exam: Present: normal inspection. Absent: CVA tenderness (R), CVA tenderness (L) Neurological exam: Present: alert Psychiatric exam: Present: anxious, manic. Absent: homicidal ideation, suicidal ideation Skin exam: Present: warm, dry, intact, normal color. Absent: rash <Rodrigo Beltran - Last Filed: 02/05/23 06:54> Course Vital Signs 01/27/23 01/27/23 01/27/23 02:20 04:54 09:10 Temperature 98.7 F Pulse Rate 155 H 115 H 103 H Respiratory 22 18 18 Rate Blood Pressure 158/89 142/105 155/103 O2 Sat by Pulse 98 95 98 Oximetry 01/27/23 01/27/23 01/27/23 09:47 14:03 19:45 Temperature 98.4 F Pulse Rate 103 H 116 H 114 H Respiratory 18 16 Rate Blood Pressure 114/81 134/106 144/105 O2 Sat by Pulse 97 97 Oximetry 01/27/23 01/28/23 01/28/23 21:52 03:34 07:26 Temperature 98.2 F Pulse Rate 97 80 Respiratory 16 20 Rate Blood Pressure 138/100 137/97 158/85 O2 Sat by Pulse 95 98 Oximetry 01/28/23 01/28/23 01/28/23 09:53 19:47 20:00 Temperature Pulse Rate 100 101 H 101 H Respiratory 20 18 Rate Blood Pressure 158/85 158/85 146/93 O2 Sat by Pulse 98 99 Oximetry 01/28/23 20:30 Temperature Pulse Rate 106 H Respiratory 18 Rate Blood Pressure 133/85 O2 Sat by Pulse 99 Oximetry Medical Decision Making - Lab Data Result diagrams: 01/27/23 03:42 01/27/23 03:42 <Andrew Ching - Last Filed: 01/27/23 12:23> - Lab Data Result diagrams: 01/28/23 06:42 01/28/23 06:42 - EKG Data -: EKG Interpreted by [facility] EKG shows normal: sinus rhythm, axis (Normal), intervals (Normal) Rate: tachycardia (149) Interpretation: nonspecific ST-T wave changes <Rodrigo Beltran - Last Filed: 02/05/23 06:54> - Medical Decision Making Patient's care was signed out awaiting brain CT and CT abdomen. Patient's workup revealed a leukocytosis without other acute laboratory testing abnormality. His head CT was put quality but did not show definitive intracranial hemorrhage or mass effect. The patient continues to be off from his baseline. He will be admitted with consultation to both neurology and psychiatry. Case discussed with [facility] group. (Andrew Ching) Was pt. sent in by a medical professional or institution (, PA, CHEMICAL SALES REPRESENTATIVE, urgent care, hospital, or custodial...) When possible be specific @ -[No] Did you speak to anyone other than the patient for history (EMS, parent, family, police, friend...)? What history was obtained from this source @ -[Patient's family gives history Did you review nursing and triage notes (agree or disagree)? Why? @ -[I reviewed and agree with nursing and triage notes] Were old charts reviewed (outside hosp., previous admission, EMS record, old EKG, old radiological studies, urgent care reports/EKG's, custodial records)? Report findings @ -[No old charts were reviewed] Differential Diagnosis (chest pain, altered mental status, abdominal pain women, abdominal pain men, vaginal bleeding, weakness, fever, dyspnea, syncope, headache, dizziness, GI bleed, back pain, seizure, CVA, palpatations, mental health, musculoskeletal)? @ -[Differential Altered Mental Status: Hypoglycemia, DKA, hypercapnia, ETOH, overdose, CO poisoning, trauma, myxedema coma, HTN encephalopathy, infection, encephalitis, psychosis, intercranial hemorrhage, hepatic encephalopathy, meningitis, CVA, this is not meant to be an all-inclusive list EKG interpreted by me (3pts min.). @ -[As above] X-rays interpreted by me (1pt min.). @ -[None done] CT interpreted by me (1pt min.). @ -[None done] U/S interpreted by me (1pt. min.). @ -[None done] What testing was considered but not performed or refused? (CT, X-rays, U/S, labs)? Why? @ -[None] What meds were considered but not given or refused? Why? @ -[None] Did you discuss the management of the patient with other professionals (professionals i.e. , PA, CHEMICAL SALES REPRESENTATIVE, lab, RT, psych nurse, social services assistant, builder beam, teacher, health promotion officer, director case)? Give summary @ -[No] Was smoking cessation discussed for >3mins.? @ -[No] Was critical care preformed (if so, how long)? @ -[No] Were there social determinants of health that impacted care today? How? (Homelessness, low income, unemployed, alcoholism, drug addiction, transportation, low edu. Level, literacy, decrease access to med. care, correction, rehab)? @ -[No] Was there de-escalation of care discussed even if they declined (Discuss DNR or withdrawal of care, Hospice)? DNR status @ -[No] What co-morbidities impacted this encounter? (DM, HTN, Smoking, COPD, CAD, Cancer, CVA, ARF, Chemo, Hep., AIDS, mental health diagnosis, sleep apnea, mo rbid obesity)? @ -[None] Was patient admitted / discharged? Hospital course, mention meds given and route, prescriptions, significant lab abnormalities, going to OR and other pertinent info. @ -[Patient is 32-year-old man brought to have evaluation for what appear to be hallucinations. The patient was pending the computed tomography scan result that time a sign out, and it appears that the CT was read as unremarkable and the patient is admitted to have further evaluation including psychiatric consultation and neurology evaluation. Undiagnosed new problem with uncertain prognosis? @ -[No] Drug Therapy requiring intensive monitoring for toxicity (Heparin, Nitro, Insulin, Cardizem)? @ -[No] Were any procedures done? @ -[No] Diagnosis/symptom? @ -[Acute altered mental status Acute hallucinations Acute, or Chronic, or Acute on Chronic? @ -[Acute Uncomplicated (without systemic symptoms) or Complicated (systemic symptoms)? @ -[Uncomplicated Side effects of treatment? @ -[No] Exacerbation, Progression, or Severe Exacerbation? @ -[No] Poses a threat to life or bodily function? How? (Chest pain, USA, ID, pneumonia, PE, COPD, DKA, ARF, appy, cholecystitis, CVA, Diverticulitis, Homicidal, Suicidal, threat to staff... and all critical care pts) @ -[No] (Rodrigo Beltran) - Lab Data Lab Results 01/27/23 01/27/23 01/27/23 Range/Units 03:00 03:42 03:42 WBC 14.2 H (3.8-10.6) k/uL RBC 4.91 (4.30-5.90) m/uL Hgb 16.0 (13.0-17.5) gm/dL Hct 46.2 (39.0-53.0) % MCV 94.2 (80.0-100.0) fL MCH 32.7 (25.0-35.0) pg MCHC 34.7 (31.0-37.0) g/dL RDW 12.0 (11.5-15.5) % Plt Count 372 (150-450) k/uL MPV 6.8 Neutrophils % 85 % Lymphocytes % 8 % Monocytes % 6 % Eosinophils % 0 % Basophils % 0 % Neutrophils # 12.0 H (1.3-7.7) k/uL Lymphocytes # 1.2 (1.0-4.8) k/uL Monocytes # 0.8 (0-1.0) k/uL Eosinophils # 0.1 (0-0.7) k/uL Basophils # 0.0 (0-0.2) k/uL PT 10.6 (10.0-12.5) sec INR 1.0 (<1.2) APTT 23.6 (22.0-30.0) sec Sodium (137-145) mmol/L Potassium (3.5-5.1) mmol/L Chloride (98-107) mmol/L Carbon Dioxide (22-30) mmol/L Anion Gap mmol/L BUN (9-20) mg/dL Creatinine (0.66-1.25) mg/dL Est GFR (CKD-EPI)AfAm (>60 ml/min/1.73 sqM) Est GFR (CKD-EPI)NonAf (>60 ml/min/1.73 sqM) Glucose (74-99) mg/dL POC Glucose (mg/dL) 132 H (70-110) mg/dL POC Glu [employer] Worker TOYIN Andre Rehman [address] Glu mg/dL mg/dL Hemoglobin A1c (<=6.0) % Calcium (8.4-10.2) mg/dL Total Bilirubin (0.2-1.3) mg/dL AST (17-59) U/L ALT (4-49) U/L Alkaline Phosphatase (38-126) U/L Troponin I (0.000-0.034) ng/mL Total Protein (6.3-8.2) g/dL Albumin (3.5-5.0) g/dL TSH (0.465-4.680) mIU/L Urine Color Urine Appearance (Clear) Urine pH (5.0-8.0) Ur Specific [place] (1.001-1.035) Urine Protein (Negative) Urine Glucose (UA) (Negative) Urine Ketones (Negative) Urine Blood (Negative) Urine Nitrite (Negative) Urine Bilirubin (Negative) Urine Urobilinogen (<2.0) mg/dL Ur Leukocyte Esterase (Negative) Urine Opiates Screen (NotDetected) Ur Oxycodone Screen (NotDetected) Urine Methadone Screen (NotDetected) Ur Propoxyphene Screen (NotDetected) Ur Barbiturates Screen (NotDetected) U Tricyclic Antidepress (NotDetected) Ur Phencyclidine Scrn (NotDetected) Ur Amphetamines Screen (NotDetected) U Methamphetamines Scrn (NotDetected) U Benzodiazepines Scrn (NotDetected) Urine Cocaine Screen (NotDetected) U Marijuana (THC) Screen (NotDetected) Serum Alcohol mg/dL 01/27/23 01/27/23 01/27/23 Range/Units 03:42 03:42 03:42 WBC (3.8-10.6) k/uL RBC (4.30-5.90) m/uL Hgb (13.0-17.5) gm/dL Hct (39.0-53.0) % MCV (80.0-100.0) fL MCH (25.0-35.0) pg MCHC (31.0-37.0) g/dL RDW (11.5-15.5) % Plt Count (150-450) k/uL MPV Neutrophils % % Lymphocytes % % Monocytes % % Eosinophils % % Basophils % % Neutrophils # (1.3-7.7) k/uL Lymphocytes # (1.0-4.8) k/uL Monocytes # (0-1.0) k/uL Eosinophils # (0-0.7) k/uL Basophils # (0-0.2) k/uL PT (10.0-12.5) sec INR (<1.2) APTT (22.0-30.0) sec Sodium 140 (137-145) mmol/L Potassium 3.8 (3.5-5.1) mmol/L Chloride 102 (98-107) mmol/L Carbon Dioxide 22 (22-30) mmol/L Anion Gap 16 mmol/L BUN 19 (9-20) mg/dL Creatinine 0.82 (0.66-1.25) mg/dL Est GFR (CKD-EPI)AfAm >90 (>60 ml/min/1.73 sqM) Est GFR (CKD-EPI)NonAf >90 (>60 ml/min/1.73 sqM) Glucose 80 (74-99) mg/dL POC Glucose (mg/dL) (70-110) mg/dL POC Glu [employer] Worker ID [address] Glu mg/dL 103 mg/dL Hemoglobin A1c 5.2 (<=6.0) % Calcium 10.3 H (8.4-10.2) mg/dL Total Bilirubin 0.5 (0.2-1.3) mg/dL AST 36 (17-59) U/L ALT 48 (4-49) U/L Alkaline Phosphatase 96 (38-126) U/L Troponin I <0.012 (0.000-0.034) ng/mL Total Protein 8.5 H (6.3-8.2) g/dL Albumin 5.1 H (3.5-5.0) g/dL TSH 0.534 (0.465-4.680) mIU/L Urine Color Urine Appearance (Clear) Urine pH (5.0-8.0) Ur Specific [place] (1.001-1.035) Urine Protein (Negative) Urine Glucose (UA) (Negative) Urine Ketones (Negative) Urine Blood (Negative) Urine Nitrite (Negative) Urine Bilirubin (Negative) Urine Urobilinogen (<2.0) mg/dL Ur Leukocyte Esterase (Negative) Urine Opiates Screen (NotDetected) Ur Oxycodone Screen (NotDetected) Urine Methadone Screen (NotDetected) Ur Propoxyphene Screen (NotDetected) Ur Barbiturates Screen (NotDetected) U Tricyclic Antidepress (NotDetected) Ur Phencyclidine Scrn (NotDetected) Ur Amphetamines Screen (NotDetected) U Methamphetamines Scrn (NotDetected) U Benzodiazepines Scrn (NotDetected) Urine Cocaine Screen (NotDetected) U Marijuana (THC) Screen (NotDetected) Serum Alcohol <10 mg/dL 01/27/23 01/27/23 Range/Units 06:40 06:40 WBC (3.8-10.6) k/uL RBC (4.30-5.90) m/uL Hgb (13.0-17.5) gm/dL Hct (39.0-53.0) % MCV (80.0-100.0) fL MCH (25.0-35.0) pg MCHC (31.0-37.0) g/dL RDW (11.5-15.5) % Plt Count (150-450) k/uL MPV Neutrophils % % Lymphocytes % % Monocytes % % Eosinophils % % Basophils % % Neutrophils # (1.3-7.7) k/uL Lymphocytes # (1.0-4.8) k/uL Monocytes # (0-1.0) k/uL Eosinophils # (0-0.7) k/uL Basophils # (0-0.2) k/uL PT (10.0-12.5) sec INR (<1.2) APTT (22.0-30.0) sec Sodium (137-145) mmol/L Potassium (3.5-5.1) mmol/L Chloride (98-107) mmol/L Carbon Dioxide (22-30) mmol/L Anion Gap mmol/L BUN (9-20) mg/dL Creatinine (0.66-1.25) mg/dL Est GFR (CKD-EPI)AfAm (>60 ml/min/1.73 sqM) Est GFR (CKD-EPI)NonAf (>60 ml/min/1.73 sqM) Glucose (74-99) mg/dL POC Glucose (mg/dL) (70-110) mg/dL POC Glu [employer] Worker ID Est[address] Glu mg/dL mg/dL Hemoglobin A1c (<=6.0) % Calcium (8.4-10.2) mg/dL Total Bilirubin (0.2-1.3) mg/dL AST (17-59) U/L ALT (4-49) U/L Alkaline Phosphatase (38-126) U/L Troponin I (0.000-0.034) ng/mL Total Protein (6.3-8.2) g/dL Albumin (3.5-5.0) g/dL TSH (0.465-4.680) mIU/L Urine Color Yellow Urine Appearance Clear (Clear) Urine pH 6.0 (5.0-8.0) Ur Specific [place] 1.025 (1.001-1.035) Urine Protein Trace H (Negative) Urine Glucose (UA) Negative (Negative) Urine Ketones 3+ H (Negative) Urine Blood Negative (Negative) Urine Nitrite Negative (Negative) Urine Bilirubin Negative (Negative) Urine Urobilinogen <2.0 (<2.0) mg/dL Ur Leukocyte Esterase Negative (Negative) Urine Opiates Screen Not Detected (NotDetected) Ur Oxycodone Screen Not Detected (NotDetected) Urine Methadone Screen Not Detected (NotDetected) Ur Propoxyphene Screen Not Detected (NotDetected) Ur Barbiturates Screen Not Detected (NotDetected) U Tricyclic Antidepress Not Detected (NotDetected) Ur Phencyclidine Scrn Not Detected (NotDetected) Ur Amphetamines Screen Not Detected (NotDetected) U Methamphetamines Scrn Not Detected (NotDetected) U Benzodiazepines Scrn Not Detected (NotDetected) Urine Cocaine Screen Not Detected (NotDetected) U Marijuana (THC) Screen Not Detected (NotDetected) Serum Alcohol mg/dL Disposition Is patient prescribed a controlled substance at d/c from ED?: No Time of Disposition: 12:24 <Andrew Ching - Last Filed: 01/27/23 12:23> <Rodrigo Beltran - Last Filed: 02/05/23 06:54> Clinical Impression: Altered mental status, Delirium due to general medical condition Disposition: ADMITTED IP TO THIS [facility] Condition: Stable
[2023-01-27] MEDS ORDERED: LORazepam 2 MG/ML INJ IV STA (08:41)
--- NOTE | 2023-01-27 08:56 | XR ---
EXAMINATION TYPE: XR KUB DATE OF EXAM: 01/27/2023 Comparison: None Clinical History: 32-year-old male urinary retention Findings: Gas in bowel loops are present including both small and large bowel. [id number] overall stable. Supine imaging limited for assessment of free air. Impression: Markedly gassy bowel loops could reflect a generalized ileus. Overall nonobstructive bowel gas patter n.
--- NOTE | 2023-01-27 09:40 | CT ---
EXAMINATION TYPE: CT brain wo con DATE OF EXAM: 01/27/2023 COMPARISON: 09/08/2011 HISTORY: 32-year-old male confusion, AMS. Panic attacks, auditory and visual hallucinations. TECHNIQUE: Examination was done in axial plane without intravenous contrast. Coronal and sagittal r econstructions performed. CT DLP: 1223.4 mGycm Automated exposure control for dose reduction was used. FINDINGS: The patient is moving during the scan. There is some IV contrast on board likely from patient's CT ab domen and pelvis study. There is mild cerebral cortical volume loss similar to 2012. Allowing for limitations from the IV contrast, there is no obvious evidence of acute intracranial he morrhage, acute ischemic changes, mass, mass-effect, or extra-axial fluid collection. There is no ef facement of cerebral sulci or basal subarachnoid cisterns. There is no hydrocephalus. There is no m idline shift. Goldman-white matter distinction is preserved. Suspect hypoplastic A1 segment left anterior cerebral artery. Orbits and globes as well as the paranasal sinuses are nondiagnostic. Mastoid air cells well pneumati zed. IMPRESSION: Exam limitations as the patient was moving during the scan. There is mild cerebral atrophy, similar t o 2011. Some additional limitation due to presence of IV contrast from the patient's abdominal CT imm ediately prior. No definite acute intracranial abnormality seen.
--- NOTE | 2023-01-27 09:52 | CT ---
EXAMINATION TYPE: CT abdomen pelvis w con DATE OF EXAM: 01/27/2023 COMPARISON: NONE HISTORY: 32-year-old male Abdominal discomfort. TECHNIQUE: Contiguous axial scanning of the abdomen and pelvis following administration of 100 ml Iso rowdy 300 IV contrast. Delayed images through the kidneys and coronal/sagittal reconstructions perform ed. CT DLP: 786.2 mGycm Automated exposure control for dose reduction was used. FINDINGS: Prominent artifacts due to the patient's arms down by his side. The long findings takes these limitat ions into account. LUNG BASES: No significant abnormality is appreciated. LIVER/GB: No significant abnormality is appreciated. PANCREAS: No significant abnormality is seen. SPLEEN: No significant abnormality is seen. ADRENALS: No significant abnormality is seen. KIDNEYS: Retroaortic left renal vein. No significant abnormality is seen. BOWEL: Mild fold thickening along the fundus and proximal body of the stomach may be due to nondisten tion. There is seen in small bowel loops throughout. No dilated small bowel, free fluid, or free air. Cecum is low in the pelvis. Mild to moderate stool burden. No pericolonic inflammatory change. LYMPH NODES: No greater than 1cm abdominal or pelvic lymph nodes are appreciated. PELVIS: Kennedy catheter decompressing the bladder. Intraluminal bladder air likely relates to the inst rumentation. No abnormal fluid collection the pelvis or pelvic lymphadenopathy. Prostate gland mildly enlarged at 4.5 cm wide. OSSEOUS STRUCTURES: No significant abnormality is seen. OTHER: No significant additional abnormality is seen. IMPRESSION: 1. MILD FOLD THICKENING ALONG THE FUNDUS AND PROXIMAL BODY OF THE STOMACH MAY BE DUE TO NONDISTENTION VERSUS UNDERLYING GASTRITIS. CLINICALLY CORRELATE. 2. KENNEDY CATHETER IN PLACE. MILD PROSTATOMEGALY AT 4.5 CM WIDE.
[2023-01-27] MEDS ORDERED: NALOXONE 0.4 MG/ML 1 ML VIAL IV PRN (12:19)
--- NOTE | 2023-01-27 13:21 | P.HPIM ---
History of Present Illness H&P Date: 01/27/23 Chief Complaint: hallucination 32 year old man with history of developmental delay with baseline mental status of being able to respond with 1-2 word answers and generally indicate his needs, seizure disorder presented for evaluation of hallucinations. Pt cannot provide history due to developmental delay and is qatari speaking only. His brother is at bedside and provides history along with his mother. From my understanding, patient has been in his usual state of health until 3 days ago when he developed visual hallucinations which have gotten progressively worse throughout the day. Pt recently completed a course of azithromycin and prednisone which family indicate were prescribed for tooth extraction, but this seems odd as a regimen for tooth extraction. Unfortunately no other corroborating data is available to me at this time. At any rate, review of his medication fills did show that he had a 5 day course of prednisone prescribed on 01/16, but that he just completed this course on according to family. Pt is unable to meaningfully participate in review of systems. In the emergency room, patient was afebrile, 114/81, HR 103, 98% on room air. CBC shows leukocytosis to 14.2. BMP is unremarkable. Ca was 10.3. LFTs show albumin of 5.1. Coags unremarkable. EKG shows sinus tachycardia without ischemic findings. CXR shows normal sized heart, clear parenchyma bilaterally. KUB shows markedly gassy bowel loops. Abd/Pelvis CT shows mild fold thickening along the fundus and proximal body of the stomach. Brain CT was a poor study but had no definitive intracranial abnormality. ROS could not be completed due to patient's mental status Gen: in no apparent distress, resting comfortably in bed Eyes: PERRL, no scleral injection or icterus HENT: normocephalic, atraumatic, good hearing acuity, moist mucous membranes Neck: no tracheal deviation, full range of motion Resp: good air exchange, breathing comfortably with no accessory muscle use, no tactile fremitus CVS: good distal perfusion x 4, no pitting edema GI: soft, NTTP, ND, no hepatosplenomegaly : no suprapubic tenderness, no CVAT, castelan catheter is present MSK: no clubbing, no cyanosis, no noted contractures of extremities Skin: no noted rashes, petechiae; temperature of skin is appropriate Neuro: moving all extremities without signs of weakness, CN II-XII intact Labs and Imaging as above Assessment/Plan: Visual Hallucinations Developmental Delay -likely related to prednisone and poor sleep -possibly complicated by keppra -neurology consult appreciated -psychiatry consult appreciated -avoid benzodiazepines -haldol PRN can be added at a later time if pt is not re-directable Proteinuria Tachycardia Hyperalbuminemia -consistent with mild dehydration -IVF wtih LR @ 100cc/hr -repeat labs tomorrow Pt is Full Code Past Medical History Past Medical History: Seizure Disorder Additional Past Medical History / Comment(s): Intellectual delay History of Any Multi-Drug Resistant Organisms: None Reported Past Surgical History: No Surgical Hx Reported Past Psychological History: No Psychological Hx Reported Smoking Status: Never smoker Past Alcohol Use History: None Reported Past Drug Use History: None Reported - Past Family History Mother Additional Family Medical History / Comment(s): Mother is alive at age 61 with history of hypertension and prediabetes. Father Additional Family Medical History / Comment(s): Father is alive with no major medical problems. Patient has 5 brothers and 1 sister with no major medical problems. No children. Medications and Allergies Home Medications Medication Instructions Recorded Confirmed Type levETIRAcetam [Keppra] 250 mg PO BID 08/02/13 01/27/15 History Ondansetron HCl [Zofran] 4 mg PO Q8HR PRN #15 tab 01/27/15 Rx Ranitidine HCl [Zantac] 150 mg PO BID #60 tab 01/27/15 Rx Mirtazapine [Remeron] 15 mg PO HS 01/19/19 01/19/19 History levETIRAcetam [Keppra] 250 mg PO BID 01/19/19 01/19/19 History Cephalexin [Keflex] 500 mg PO Q8HR #28 cap 01/21/19 Rx Allergies Allergy/AdvReac Type Severity Reaction Status Date / Time No Known Allergies Allergy Verified 01/27/23 02:25 Physical Exam Osteopathic Statement: *. No significant issues noted on an osteopathic structural exam other than those noted in the History and Physical/Consult. Vitals: Vital Signs Temp Pulse Resp BP Pulse Ox 01/27/23 09:47 103 H 114/81 01/27/23 09:10 103 H 18 155/103 98 01/27/23 04:54 115 H 18 142/105 95 01/27/23 02:20 98.7 F 155 H 22 158/89 98 Intake and Output 01/26/23 01/27/23 01/27/23 22:59 06:59 14:59 Output Total 650 Balance -650 Output: Urine 650 Uretheral (Castelan) 650 Other: Weight 65.771 kg Results CBC & Chem 7: 01/27/23 03:42 01/27/23 03:42 Labs: Abnormal Lab Results - Last 24 Hours (Table) 01/27/23 01/27/23 01/27/23 Range/Units 03:00 03:42 03:42 WBC 14.2 H (3.8-10.6) k/uL Neutrophils # 12.0 H (1.3-7.7) k/uL POC Glucose (mg/dL) 132 H (70-110) mg/dL Calcium 10.3 H (8.4-10.2) mg/dL Total Protein 8.5 H (6.3-8.2) g/dL Albumin 5.1 H (3.5-5.0) g/dL Urine Protein (Negative) Urine Ketones (Negative) 01/27/23 Range/Units 06:40 WBC (3.8-10.6) k/uL Neutrophils # (1.3-7.7) k/uL POC Glucose (mg/dL) (70-110) mg/dL Calcium (8.4-10.2) mg/dL Total Protein (6.3-8.2) g/dL Albumin (3.5-5.0) g/dL Urine Protein Trace H (Negative) Urine Ketones 3+ H (Negative)
[2023-01-27] MEDS: LACTATED RINGERS 1,000 ML IV SCH ×2 (14:00→23:05)
[2023-01-27] MEDS ORDERED: levETIRAcetam 250 MG TAB PO SCH (21:00)
[2023-01-27] MEDS: levETIRAcetam 250 MG TAB PO SCH (21:49)
[2023-01-28] MEDS ORDERED: LORazepam 2 MG/ML INJ IV STA (04:22)
[2023-01-28] MEDS ORDERED: ZIPRASIDONE 20 MG VIAL IM STA (04:22)
[2023-01-28] MEDS: levETIRAcetam 250 MG TAB PO SCH (09:52)
[2023-01-28 11:05] LABS: Basophils # (A) 0.03 X 10*3/uL (0.00-0.10); Basophils % (A) 0.4 %; Eosinophils # (A) 0.12 X 10*3/uL (0.04-0.35); Eosinophils % (A) 1.5 %; HCT 42.5 % (39.6-50.0); HGB 14.8 g/dL (13.0-17.0); Lymphocytes # (A) 1.76 X 10*3/uL (0.90-5.00); Lymphocytes % (A) 21.8 %; MCH 33.3 pg (27.0-32.0); MCHC 34.8 g/dL (32.0-37.0); MCV 95.7 FL (80.0-97.0); Monocytes # (A) 0.77 X 10*3/uL (0.20-1.00); Monocytes % (A) 9.5 %; NRBC Per 100 WBC 0 X 10*3/uL (0.00-0.01); Neutrophils # (A) 5.39 X 10*3/uL (1.80-7.70); Neutrophils % (A) 66.6 %; Platelet Count 305 X 10*3/uL (140-440); RBC 4.44 X 10*6/uL (4.40-5.60); RDW 12.1 % (11.5-14.5); WBC 8.09 X 10*3/uL (4.50-10.00)
[2023-01-28 11:10] LABS: ALT 38 U/L (10-49); AST 34 U/L (14-35); Albumin 4.2 g/dL (3.8-4.9); Albumin/Globulin Ratio 1.75 Ratio (1.60-3.17); Alkaline Phosphatase 70 U/L (41-126); BUN/Creat Ratio 13.71 Ratio (12.00-20.00); Bilirubin, Conjugated <0.20 mg/dL (0.20-0.40); Bilirubin,Unconjugated >0.50 mg/dL (0.20-1.00); Blood Urea Nitrogen 9.6 mg/dL (9.0-27.0); Calcium 9.6 mg/dL (8.7-10.3); Carbon Dioxide 23.7 mmol/L (21.6-31.8); Chloride 104 mmol/L (96-109); Globulin 2.4 g/dL (1.6-3.3); Glucose 82 mg/dL (70-110); Magnesium 2.3 mg/dL (1.5-2.4); Potassium 3.8 mmol/L (3.5-5.5); Sodium 140 mmol/L (135-145); Total Bilirubin 0.7 mg/dL (0.3-1.2); Total Protein 6.6 g/dL (6.2-8.2)
--- NOTE | 2023-01-28 13:07 | P.CNNES ---
History of Present Illness Consult date: 01/28/23 Requesting physician: Andrew Ching Reason for Consult: Altered mental status History of Present Illness: Patient is a 32-year-old male with history of cerebral palsy, developmental delays, seizure disorder came to the hospital yesterday papeterie table assembler at 2:18 AM for altered mental status. Patient's mother was also present, who provided with a history, translated by her nephew Rudy on the phone [phone]. Patient was born with umbilical cord around his neck, and he aspirated amniotic liquid. He also was in a state of coma for about 20 days at 1 years of age while he was in [place]. Patient's mother does not know the reason why he was in a coma. He has subsequent developmental delays, developed seizure disorder for last 14 years. He gets grand mal seizures, and he bites his tongue. His seizure f requency is about once or twice every 3 months. Patient has some limited speech, speaks certain words, but frequently grunts or performs thumbs up to communicate. He walks usually with assistance like hanging on to someone, or hangs onto the wall, sometimes walks by himself. Patient's nephew states that he saw his last seizure in mid of November 2022, when he had an abscense Seizure. He says that he was grabbing coffee, and the coffee flung and he was unresponsive, looking into distance without any convulsive activity and after which he was in a postictal period. This was the first absence seizures he has ever had. Patient's mom states that his last seizure was about a week ago. He came to the hospital because he was having visual hallucinations for last 3 days. Symptoms started on Saturday, and he was seeing objects, acting different, pointing at things, looking at the wall. Yesterday night he started crying, running away from something which was not there. Patient also had undergone dental extraction by a dentist 2 weeks ago. He was also given prednisone for 5 days, which is completed recently. Vital signs on arrival blood pressure 158/89, pulse rate 155, temperature 98.7. Blood tests shows WBC 14.2, which has come down to 8.09. Hemoglobin, platelets are normal. PT/PTT, electrolytes, renal and hepatic panel, troponin all negative. TSH normal, UA negative, urine drug screen, blood alcohol level, and influenza screen, RSV and [place] virus PCR negative. EKG shows sinus tachycardia, possible atrial flutter. CT head revealed exam limitations as the patient was moving during the scan. Some additional limitation due to presence of IV contrast from the patient's abdominal CT performed immediate the prior. There is mild cerebral atrophy. No change as compared to 2012. No acute process. I personally reviewed CT head, agree with the findings. Chest x-ray i s normal. KUB showed moderately gassy bowel loops could reflect a generalized ileus. Overall nonobstructive bowel gas pattern. CT of abdomen and pelvis showed mild fold thickening along the fundus and proximal body of the stomach may be due to non-distention versus underlying gastritis, clinically correlate. Patient's previous MRI of the brain from 02/04/2014 showed sequela of ethmoid sinusitis. No definite enhancing lesions, space-occupying process or mass effect. Patient currently takes Keppra 250 mg twice a day. Patient's mother believes that he is still having hallucinations, was given Ativan. He has not slept for the past few days. Review of Systems As per description from patient's mother, translated by Mr. Bradley, her nephew. Constitutional: Reports sweats, Denies chills, Denies fever Eyes: denies blurred vision, denies diplopia, denies pain Ears: deny: decreased hearing, ear discharge Ears, nose, mouth and throat: Denies headache, Denies sore throat Cardiovascular: Denies chest pain, Denies shortness of breath Respiratory: Reports excessive sputum, Denies cough Gastrointestinal: Denies abdominal pain, Denies diarrhea, Denies nausea, Denies vomiting Genitourinary: Reports urinary retention, Denies dysuria, Denies hematuria Integumentary: Denies pruritus, Denies rash Neurological: Reports as per HPI Psychiatric: Reports hallucinations, Reports insomnia Endocrine: Denies fatigue, Denies weight change Past Medical History Past Medical History: Seizure Disorder Additional Past Medical History / Comment(s): Intellectual delay History of Any Multi-Drug Resistant Organisms: None Reported Past Surgical History: No Surgical Hx Reported Past Psychological History: No Psychological Hx Reported Smoking Status: Never smoker Past Alcohol Use History: None Reported Past Drug Use History: None Reported - Past Family History Mother Additional Family Medical History / Comment(s): Mother is alive at age 61 with history of hypertension and prediabetes. Father Additional Family Medical History / Comment(s): Father is alive with no major m edical problems. Patient has 5 brothers and 1 sister with no major medical problems. No children. Medications and Allergies Home Medications Medication Instructions Recorded Confirmed Type levETIRAcetam [Keppra] 250 mg PO BID 01/19/19 01/27/23 History Allergies Allergy/AdvReac Type Severity Reaction Status Date / Time No Known Allergies Allergy Verified 01/27/23 13:57 Physical Examination - Vital Signs Vital Signs: Vital Signs Temp Pulse Resp BP Pulse Ox 01/28/23 09:53 100 20 158/85 98 01/28/23 07:26 80 20 158/85 98 01/28/23 03:34 98.2 F 97 16 137/97 95 01/27/23 21:52 138/100 01/27/23 19:45 98.4 F 114 H 16 144/105 97 01/27/23 14:03 116 H 18 134/106 97 Patient is a young male, in no acute distress. Patient is alert awake. He sometimes speaks certain syllables, which are difficult to understand, and grunts. He does try to communicate with thumbs up. Patient was saying yes for quite many objects presented like reflex hammer and said "yes" for a pen. Patient did nod "no-no" for any abdominal pain, chest pain. Attention, concentration and fund of knowledge is severely limited. On cranial nerve examination, pupils are equal, round and reacting to light, v isual burch are full on confrontation, with no neglect on double simultaneous stimulation. Extraocular muscles are intact with no nystagmus. Face is symmetric, tongue protrudes to the midline. Palatal elevation and sensation normal, hearing and shoulder shrug normal, facial sensation normal. On muscle strength testing, there is no pronator drift and the strength is normal in arms and legs distally and proximally. He did not cooperate well with testing of the lower extremities particularly the ankle dorsiflexion bilaterally, but plantar flexion appeared normal. He was lifting his legs fairly normally. Deep tendon reflexes are symmetric 2+ all over and plantars downgoing. Sensory to touch could not be assessed. Cerebellar function showed possible some ataxia for [id number] testing. He also appears to have some ataxia in the lower extremities with movement. Tone and bulk of muscles normal. Patient has some dystonic hand posturing with wrist flexion at times and finger extension. Gait deferred.. On general examination, there is no carotid bruit or murmur, S1-S2 audible. Chest is clear on consultation. Abdomen is soft nontender. No organomegaly, bowel sounds present. Peripheral pulses are present. No peripheral edema. Patient is catheterized. Results - Laboratory Findings CBC and BMP: 01/28/23 06:42 01/28/23 06:42 Abnormal Lab Findings: Abnormal Labs 01/27/23 01/27/23 01/27/23 03:00 03:42 03:42 WBC 14.2 H MCH Neutrophils # 12.0 H Anion Gap POC Glucose (mg/dL) 132 H Calcium 10.3 H Total Protein 8.5 H Albumin 5.1 H Urine Protein Urine Ketones 01/27/23 01/28/23 01/28/23 06:40 06:42 06:42 WBC MCH 33.3 H Neutrophils # Anion Gap 12.30 H POC Glucose (mg/dL) Calcium Total Protein Albumin Urine Protein Trace H Urine Ketones 3+ H Assessment and Plan Assessment: * Altered mental status, likely due to acute delirium with hallucinations. Patient recently completed treatment with prednisone, which probably triggered insomnia and delirium. * Acute insomnia, likely due to delirium * History of seizure disorder, not very well controlled, last seizure mid November 2022. * Cerebral palsy * Developmental delays Plan: * Check EEG evaluate for any epileptiform activity. * Patient's seizures are occurring about once or twice every 3 months. He gets grand mal seizures. He is on low-dose Keppra 250 mg twice a day. We will consider increasing dose of Keppra to 500 mg twice a day. * Patient's delirium will hopefully resolve in a day or so. May need short-term Seroquel to help with sleep and to treat delirium. * Check B12, folate, TSH is normal 0.534 * Neurology will follow. Thank you for the consult. Addendum: EEG is normal awake and drowsy. No focal, lateralized or epileptiform activity was seen.
[2023-01-28] MEDS: LACTATED RINGERS 1,000 ML IV SCH ×2 (14:11→18:05)
[2023-01-28] MEDS ORDERED: haloperidoL 5 MG TAB PO PRN (14:36)
--- NOTE | 2023-01-28 14:42 | P.CN ---
Psychiatric Consult - . Consult date: 01/28/23 Consult:: 01/28/23 13:27 IDENTIFYING DATA: This patient is a 32-year-old male with a history of developmental delay, cerebral palsy, currently lives with his caretakers were his parents in a house. REASON FOR REFERRAL: Psychiatry was consulted for hallucinations HISTORY OF PRESENT ILLNESS: The patient presented to the hospital for altered mental status for the past 3 or 4 days before coming in. Patient was noted by family to have been responding to internal stimuli, has a cerebral palsy history, developmentally delayed, seizure history. Patient is also having altered mental status and hallucinating seeing things and also acting paranoid. Patient had a computed tomography scan which showed mild cerebral atrophy which was unchanged from a previous scan. No acute changes. Neurology is following and he apparently recently completed a treatment with prednisone which may have triggered the increase in delirium symptoms and psychosis. EEG is currently pending. UDS is negative. Urinalysis is negative. Patient's mother was at the bedside and stated that patient has been hiding under the blankets at times, suspicious, paranoid and acting bizarre at home. She states that he also has been responding to voices. Apparently seeing things in the corners of the room. Patient is nonverbal for the most part and not able to give a history. Rest of the psychiatric history and social history was limited and unable to gather fully. PAST PSYCHIATRIC HISTORY: Patient has a a history of cerebral palsy and developmental delay. Patient denies being on any psychiatric medications. Patient denies any previous psychiatric hospitalizations. Patient denies any psychiatric outpatient follow-up. . The patient used to have a psychiatrist in the area however has not for several years. Patient denies any history of suicide attempts in the past. Past Medical History: Seizure Disorder Additional Past Medical History / Comment(s): Intellectual delay History of Any Multi-Drug Resistant Organisms: None Reported Past Surgical History: No Surgical Hx Reported Past Psychological History: No Psychological Hx Reported Smoking Status: Never smoker Past Alcohol Use History: None Reported Past Drug Use History: None Reported ALLERGIES: as per EMR. CHEMICAL DEPENDENCY HISTORY: None FAMILY PSYCHIATRIC/SUBSTANCE USE HISTORY: denies SOCIAL HISTORY: Patient currently lives with his mother and father who are his caretakers. MENTAL STATUS EXAM: General Appearance: Patient appears to be laying in the bed, smiling at times, stated age is alert. Patient appears to have fair hygiene and grooming wearing hospital gown with fair eye contact. Behavior: Patient is calmly lying in bed without any agitated behavior. Mild paranoia and hiding in the blankets at times. Speech: Patient's speech is mostly nonverbal Mood/Affect: Unable to gather Suicidality/Homicidality: Unable to gather Perceptions: Unable to gather Though content/process: Unable to gather Memory and concentration: Attention span is limited Judgment and insight: Chronically limited IMPRESSIONS: Delirium, possibly secondary to medications or toxic metabolic Cerebral palsy Intellectual disability PLAN: -At this time patient DOES NOT meet criteria for inpatient psychiatric admission. -Delirium precautions recommended with patient including - avoiding use of narcotics and MANAGER TRAVEL sedatives, limit anticholinergic medications when possible, frequent re-orientation, minimize use of restraints, open window shades during the day and close them at night -Would recommend the following medication changes/additions: Start paliperidone 3 mg daily for mood stabilization/psychosis, trazodone 50 mg daily at bedtime for insomnia/mood. -Communicated plan to patient's nurse -Will continue to follow along -Please contact with any questions. 01/28/23 14:36
[2023-01-28] MEDS: PALIPERIDONE 3 MG TAB.ER.24 PO SCH (15:59)
--- NOTE | 2023-01-28 16:02 | P.PN ---
Subjective Progress Note Date: 01/28/23 32 year old M with history of developmental delay, cerebral palsy, seizure disorder, lives with his parents presents to the ED for hallucinations. Patient is non verbal and history is obtained from the mother with the aid of an slinger sequins. Mother reports patient has been staring off into space which has become more progressive since Saturday. She reports a history of seizures that consists of neck and full body stiffness which is not like these current episodes. Recently completed a course of Prednisone for a URI or tooth infection. In the ED, he underwent extensive evaluation: Vital signs stable. Tachycardic. CBC WBC 14.2. Coag panel within normal limits. CMP Ca 10.3, albumin 5.1. A1c 5.2. TSH 0.534. Trop < 0.012. UA trace protein, 3+ ketones. UDS negative. EtOH negative. COVID, Flu, RSV negative. CXR negative. KUB no acute pathology. EKG sinus tachycardia. CT head cerebral atrophy. Patient is admitted for further management. Neurology consulted, recommends B12 and TSH, EEG, increase Keppra to 500 mg PO BID. Psychriatry consulted, started Paliperidone 3 mg PO QD, Trazodone 50 mg PO QHS. 01/28 Patient was seen and examined. Discussed with mother with the aid of an interpretor as above. CBC MCHC 33.3. BMP AG 12.3. General: non toxic, no distress, appears at stated age Derm: warm, dry Head: atraumatic, normocephalic, symmetric Eyes: EOMI, no lid lag, anicteric sclera Cardiovascular: good distal perfusion in all 4 extremties Lungs: breathing comfortably, no accessory muscle use Ext: no gross muscle atrophy, no edema, no contractures Neuro: Unable to perform Psych: Non verbal Based on my assessment of this patient, this patient meets a moderate complexity level of care. Patient has a new diagnosis of hallucinations with uncertain prognosis. Hallucinations: Neurology consulted, recommends B12 and TSH, EEG, increase Keppra to 500 mg PO BID. Psychriatry consulted, started Paliperidone 3 mg PO QD, Trazodone 50 mg PO QHS. CODE STATUS: FULL CODE. DVT Prophylaxis: SCD GI Prophylaxis: Designated medical POA if patient is not able to make medical decisions for themselves: Mother I have reviewed the following incident response consultant notes: Neuro, Psyc note. I have reviewed the results of the following tests: CBC, BMP. I have ordered the following tests: I have discussed the care of this patient with the following independent historian: I have independently interpreted the following test below: I have discussed the management of this patient with the following physician: Extensively with mother. Objective - Vital Signs Vital signs: Vital Signs Temp 98.2 F 01/28/23 03:34 Pulse 100 01/28/23 09:53 Resp 20 01/28/23 09:53 BP 158/85 01/28/23 09:53 Pulse Ox 98 01/28/23 09:53 FiO2 Intake & Output 01/27/23 01/28/23 01/28/23 18:59 06:59 18:59 Output Total 760 Balance -760 Output: Urine 760 - Labs CBC & Chem 7: 01/28/23 06:42 01/28/23 06:42 Labs: Abnormal Lab Results - Last 24 Hours (Table) 01/28/23 01/28/23 Range/Units 06:42 06:42 MCH 33.3 H (27.0-32.0) pg Anion Gap 12.30 H (4.00-12.00) mmol/L Microbiology - Last 24 Hours (Table) 01/27/23 03:42 Blood Culture - Preliminary Blood
[2023-01-28] MEDS: levETIRAcetam 500 MG TAB PO SCH (20:17)
[2023-01-28] MEDS ORDERED: traZODone HCL 50 MG TAB PO SCH (21:00)
--- NOTE | 2023-01-29 02:43 | EEG ---
ELECTROENCEPHALOGRAM REPORT PREAMBLE: This is a 32-year-old male with history of seizure disorder, came in with altered mental status. EEG FINDINGS: This is a 21-channel digital EEG recorded with video component, utilizing 10/20 international system with referential and bipolar montages. Background consists of fairly well developed, and regulated. Predominantly 10-11 hertz alpha activity, seen maximal in posterior head region. Background is posterior dominant and reactive to eye opening and closing. Drowsiness was seen with appearance of bilaterally symmetric theta frequency rhythm. Photic stimulation showed no driving response. Deeper stages of sleep were not seen. No focal or generalized epileptiform activity was seen. IMPRESSION: This is essentially a normal awake and drowsy EEG. No focal, lateralized, or epileptiform activity was seen. MMODL / IJN: [id number] /
[2023-01-29] MEDS: LACTATED RINGERS 1,000 ML IV SCH (03:10)
[2023-01-29] MEDS: PALIPERIDONE 3 MG TAB.ER.24 PO SCH (08:15)
[2023-01-29] MEDS: levETIRAcetam 500 MG TAB PO SCH (08:15)
--- NOTE | 2023-01-29 13:20 | P.PN ---
Subjective Progress Note Date: 01/29/23 32 year old M with history of developmental delay, cerebral palsy, seizure disorder, lives with his parents presents to the ED for hallucinations. Patient is non verbal and history is obtained from the mother with the aid of an test engineering technician. Mother reports patient has been staring off into space which has become more progressive since Saturday. She reports a history of seizures that consists of neck and full body stiffness which is not like these current episodes. Recently completed a course of Prednisone for a URI or tooth infection. In the ED, he underwent extensive evaluation: Vital signs stable. Tachycardic. CBC WBC 14.2. Coag panel within normal limits. CMP Ca 10.3, albumin 5.1. A1c 5.2. TSH 0.534. Trop < 0.012. UA trace protein, 3+ ketones. UDS negative. EtOH negative. COVID, Flu, RSV negative. CXR negative. KUB no acute pathology. EKG sinus tachycardia. CT head cerebral atrophy. Patient is admitted for further management. Neurology consulted, recommends B12 and TSH, EEG, increase Keppra to 500 mg PO BID. Psychriatry consulted, started Paliperidone 3 mg PO QD, Trazodone 50 mg PO QHS. 01/28 Patient was seen and examined. Discussed with mother with the aid of an interpretor as above. CBC MCHC 33.3. BMP AG 12.3. 01/29 Patient was seen and examined. Mom and dad at bedside. Appears to be at baseline. More interactive. Used an interpretor. EEG negative for seizure activity. Discussed with CARLY De La Torre for discharge on Paliperidone and Trazadone. Plans to discharge home on Keppra 500 mg PO BID, Paliperidone 3 mg PO QD, Trazodone 50 mg PO QHS. Pertinent studies as above. General: non toxic, no distress, appears at stated age Derm: warm, dry Head: atraumatic, normocephalic, symmetric Eyes: EOMI, no lid lag, anicteric sclera Cardiovascular: good distal perfusion in all 4 extremties Lungs: breathing comfortably, no accessory muscle use Ext: no gross muscle atrophy, no edema, no contractures Neuro: Unable to perform Psych: Non verbal Discharge Diagnosis: Hallucinations This complex discharge took 35 minutes to complete. Objective - Vital Signs Vital signs: Vital Signs Temp 98.4 F 01/29/23 07:28 Pulse 114 H 01/29/23 07:28 Resp 17 01/29/23 07:28 BP 148/89 01/29/23 07:28 Pulse Ox 97 01/29/23 07:28 FiO2 Intake & Output 01/28/23 01/29/23 01/29/23 18:59 06:59 18:59 Output Total 475 400 Balance -475 -400 Weight 65.771 kg Output: Urine 475 400 Uretheral (Devine) 400 Other: Voiding Method Indwelling Catheter Indwelling Catheter - Labs CBC & Chem 7: 01/28/23 06:42 01/28/23 06:42 Labs: Microbiology - Last 24 Hours (Table) 01/27/23 03:42 Blood Culture - Preliminary Blood 01/27/23 03:39 Blood Culture - Preliminary Blood
--- NOTE | 2023-01-29 13:26 | P.PN ---
Progress Note - Text Progress Note Date: 01/29/23 Interval History: Patient was seen on the medical floor and was directable and agreeable to meet with publications writer. As per patients nurse, patient is doing better today. Patient slept well last night, and is compliant with medication. Patient appears happy and pleasant, and at baseline today and more interactive with publications writer. Patients parents at bedside. States patient is alot brighter today, not paranoid, and they are comfortable taking him home. we spoke about medications and side effects and recommended [facility] follow up for continuing medications which they are agreeable to. Patient is non-verbal today and wasnt able to answer any questions however did interact and follow directions. Mental Status Exam: General Appearance: Patient appears to be laying in the bed, smiling at times, stated age is alert. Patient appears to have fair hygiene and grooming wearing hospital gown with fair eye contact. Behavior: Patient is calmly lying in bed without any agitated behavior. interactive today, calm and brighter. Speech: Patient's speech is mostly nonverbal Mood/Affect: Unable to gather Suicidality/Homicidality: Unable to gather Perceptions: Unable to gather Though content/process: Unable to gather Memory and concentration: Attention span is improved Judgment and insight: Chronically limited IMPRESSIONS: Delirium, possibly secondary to medications or toxic metabolic Cerebral palsy Intellectual disability PLAN: -At this time patient DOES NOT meet criteria for inpatient psychiatric admission. -Continue: paliperidone 3 mg daily for mood stabilization/psychosis, trazodone 50 mg daily at bedtime for insomnia/mood. -Communicated plan to patient's nurse and also patient's parents about the recommendations, medications answered questions and encouraged outpatient mental health follow-up. Nurse will be providing patient with [place] [facility] and referral information. -Psychiatry will sign off at this time. -Please contact with any questions.
[2023-01-29 14:01] VITALS: BP 131/88; PULSE 102; RESP 16; TEMP 98.5
--- NOTE | 2023-01-29 14:09 | CDI ---
Documentation Clarification Form Date: 01/29/2023 01:54:52 PM From: Jennifer Verdugo RN CCDS Phone: [phone] Admit Date: 01/27/2023 12:19:00 PM Patient Name: Kwaku Sharma Visit Number: [id number] Discharge Date: ATTENTION: The Clinical Documentation Specialists (CDI) and [facility] Coding Staff appreciate your assistance in clarifying documentation. Please respond to the clarification below the line at the bottom and electronically sign. The CDI & [facility] Coding staff will review the response and follow-up if needed. Please note: Queries are made part of the Legal Health Record. If you have any questions, please contact the author of this message via ITS. Dr. Samuel Merritt Your patient has the documented symptom of Altered Mental Status 01/28, Neurology consult. Additional clarification regarding the etiology/cause of this symptom is requested. History/Risk Factors: 32 y/o Male presents to the ED for not eating or drinking well and looking as if he is seeing something that is not there. Medical history: Cerebral palsy, Developmental delay and Turkish speaking only. 01/27, ED note. Clinical Indicators: EEG, 01/28: Essentially a normal awake and drowsy EEG Brain CT, 01/27: Mild cerebral atrophy similar to 2012. Neuro consult, 01/28: Altered mental status, likely due to acute delirium with hallucinations. patient recently completed treatment with prednisone, which probably triggered insomnia and delirium. Psychology note, 01/29: Delirium possibly secondary to medications or toxic metabolic H&P, 01/27: Patient recently completed a course of azithromycin and prednisone per family. Treatment: Avoiding use of narcotics and S[employer] SECUR[employer] ENGINEER sedatives, Limit anticholinergic medications when possible, Open window shades during the day and close them at night. Please clarify the etiology of the symptom of Altered Mental Status: [ ] Metabolic Encephalopathy due to prednisone [ ] Other condition (please specify) [ x ] Unable to determine (Template Last Revised: March 2020) ROMYD
--- NOTE | 2023-02-06 08:22 | CDI ---
Documentation Clarification Form Date: 02/06/2023 08:18:00 AM From: Jennifer Verdugo Phone: [phone] Admit Date: 01/27/2023 12:19:00 PM Patient Name: Kwaku Sharma Visit Number: [id number] Discharge Date: 01/29/2023 04:30:00 PM ATTENTION: The Clinical Documentation Specialists (CDI) and [facility] Coding Staff appreciate your assistance in clarifying documentation. Please respond to the clarification below the line at the bottom and electronically sign. The CDI & [facility] Coding staff will review the response and follow-up if needed. Please note: Queries are made part of the Legal Health Record. If you have any questions, please contact the author of this message via ITS. Dr. Fermín Adam Your patient has the documented symptom of Altered Mental Status 01/28, Neurology consult. Additional clarification regarding the etiology/cause of this symptom is requested. History/Risk Factors: 32 y/o Male presents to the ED for not eating or drinking well and looking as if he is seeing something that is not there. Medical history: Cerebral palsy, Developmental delay and [place] speaking only. 01/27, ED note. Clinical Indicators: EEG, 01/28: Essentially a normal awake and drowsy EEG Brain CT, 01/27: Mild cerebral atrophy similar to 2012. Neuro consult, 01/28: Altered mental status, likely due to acute delirium with hallucinations. patient recently completed treatment with prednisone, which probably triggered insomnia and delirium. Psychology note, 01/29: Delirium possibly secondary to medications or toxic metabolic H&P, 01/27: Patient recently completed a course of azithromycin and prednisone per family. Treatment: Avoiding use of narcotics and MANAGER NON PROFIT sedatives, Limit anticholinergic medications when possible, Open window shades during the day and close them at night. Please clarify the etiology of the symptom of Altered Mental Status: [ x ] Metabolic Encephalopathy due to prednisone (Most likely cause). [ ] Other condition (please specify) [ ] Unable to determine (Template Last Revised: March 2020) MTDD
== END 2023-01-29 16:30 | disposition home or self-care (01) | DRG 93 ==
LOC: EC 02:18 → EEVIPCON 12:19 → 4SSUR 12:19 → 5NMEDONC 01-28 19:23
PROVIDERS: ADMIT Student in an Organized Health Care Education/Training Program; ATTEND Student in an Organized Health Care Education/Training Program
DX: G92.8 Other toxic encephalopathy (principal); G40.A09 Absence epileptic syndrome, not intractable, without status epilepticus; G40.409 Other generalized epilepsy and epileptic syndromes, not intractable, without status epilepticus; G80.9 Cerebral palsy, unspecified; G31.9 Degenerative disease of nervous system, unspecified; T38.0X5A Adverse effect of glucocorticoids and synthetic analogues, initial encounter; E86.0 Dehydration; K04.7 Periapical abscess without sinus; J06.9 Acute upper respiratory infection, unspecified; F79 Unspecified intellectual disabilities; G47.00 Insomnia, unspecified; R80.9 Proteinuria, unspecified; J32.2 Chronic ethmoidal sinusitis; Z79.899 Other long term (current) drug therapy
CPT/HCPCS: 36415; 70450; 71045; 74018; 74177; 80048; 80053; 80076; 80306; 80320; 81003; 82607; 82746; 83036; 83735; 84443; 84484; 85025; 85610; 85730; 87040; 87636; 93005; 95816; 96361; 96374; 96376; 99285